=== PATIENT | female | born 1990 | race Caucasian/White ===

== ENCOUNTER 2019-06-12 12:09 | Emergency (ER) | payer MEDICARE, MEDICAID, SELFPAY ==
--- NOTE | ~2019-06-12 | CT_ITS ---
EXAMINATION: CT abdomen pelvis w con DATE: 06/12/2019 14:13 INDICATION: Suprapubic abdominal pain with nausea and vomiting TECHNIQUE: Computed tomography (CT) of the abdomen and pelvis was performed with 100 cc intravenous c ontrast. Automated exposure control and iterative reconstruction technique were employed. Exam dose: 427.86 mGy-cm total exam DLP. COMPARISON: None. FINDINGS: The lung bases are clear. Normal heart size. No pericardial or pleural effusion. No hepatic space-occupying mass lesion or bile duct dilatation. The gallbladder is unremarkable. No p ancreatic mass lesion, calcification or ductal dilatation. Normal splenic size. Normal morphology of the adrenal glands. No renal mass lesion or urinary tract calculus or hydroureteronephrosis. Normal caliber of the abdominal aorta. No intraperitoneal or retroperitoneal or pelvic mass lesion or adenopathy. 2 cm right ovarian cystic lesion is noted there is a mild amount of low-attenuation free fluid in the cul-de-sac and left adnexal area. The uterus, adnexal areas and urinary bladder are otherwise unremarkable. No bowel obstruction or intraperitoneal free air. Included skeletal structures are unremarkable. IMPRESSION: 2 cm right ovarian cystic lesion Mild amount of free fluid in the pelvic cul-de-sac and left adnexal area Reviewed, dictated and finalized at [facility]. Reviewed, dictated and finalized at location [facility]. 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
[2019-06-12 12:15] VITALS: BP 148/84; PULSE 91; RESP 18; TEMP 36.5; O2SAT 96
--- NOTE | 2019-06-12 12:21 | ED.ABDPAIN ---
HPI - Abdominal Pain General Chief Complaint: Abdominal Pain Stated Complaint: severe abd pain Time Seen by Provider: 06/12/19 12:40 Source: patient Mode of arrival: ambulatory Limitations: clinical condition History of Present Illness HPI narrative: 28-year-old woman comes in today complaining of suprapubic abdominal pain that has become worse over the last 48 hours. Patient states that she had some period-like cramps intermittently since her period 2 weeks ago. Her pain seems to get worse with eating and walking. She had vomiting yesterday and today. She some mashed potatoes approximately 1-1/2 hours ago. She denies fever, vaginal discharge, dysuria, diarrhea, hematemesis, melena, hematochezia and lightheadedness. MD elicited complaint: abdominal pain Onset (ago): week(s) (2) Pain Consistency: constant Location: suprapubic Severity: severe Quality: cramping Radiation: none Migration to: no migration Exacerbating factors: eating and movement Relieving factors: rest Associated symptoms: nausea and vomiting Related Data Home Medications Medication Instructions Recorded Confirmed multivitamin,[id number] 1 tablet PO DAILY 06/12/19 06/12/19 [Complete Multivitamin] Allergies Allergy/AdvReac Type Severity Reaction Status Date / Time No Known Allergies Allergy Verified 06/12/19 12:35 Review of Systems Constitutional: Constitutional: Denies chills, Denies fatigue, Denies fever(s) and Denies weakness Eyes: Eyes: Denies change in vision and Denies photophobia ENT: Denies dysphagia, Denies nasal congestion and Denies sore throat Cardiovascular: Cardiovascular: Denies chest pain and Denies radiating jaw, neck or arm pain Respiratory: Respiratory: Denies cough and Denies dyspnea Gastrointestinal: Gastrointestinal: Reports as per HPI Genitourinary: Genitourinary: Denies hematuria, Denies nocturia and Denies dysuria Musculoskeletal: Musculoskeletal: Denies back pain, Denies joint swelling and Denies muscle cramps Integumentary/Breasts: Skin/Breast: Denies pruritus, Denies erythema and Denies rash Neurologic: Denies vertigo, Denies syncope and Denies focal weakness Psychiatric: Psychiatric: Denies anxiety and Denies depression Endocrine: Endocrine: Denies polydipsia and Denies polyuria Hematologic/Lymphatic: Hematologic/Lymphatic: Denies easy bleeding and Denies easy bruising Allergic/Immunologic: Allergic/Immunologic: Denies lip swelling and Denies wheezing [facility] Past Medical History Medical History Kunkle's disease Surgical History Surgical History History of History of tonsillectomy History of tubal ligation Social History Social History Smoking status: Current some day smoker Alcohol intake: never Substance use: never Living arrangements: with family Exam Const: General: healthy appearing and alert Orientation/consciousness: patient oriented x3 Other: Moderate acute distress HENMT: Ears: external ears normal and EAC's normal Mouth: Yes Normal oral and palatal mucosa present and Yes moist mucous membranes Throat: posterior oropharynx normal Eyes: Conjunctivae: conjunctivae normal Pupils: Equal, round and reactive pupils present EOM: EOMs intact bilaterally Resp: Effort & Inspection: normal respiratory effort and not labored Auscultation: clear to auscultation bilaterally, no rales, no rhonchi and no wheezes Cardio: Rate: regular rate Rhythm: regular rhythm Heart sounds: no murmurs GI: GI Palp: Yes Soft to palpation, Yes Tenderness to palpation present (GI) (suprapubic), No Guarding due to palpation present (GI), No Rigid due to palpation and Yes Rebound tenderness present Auscultation: normal bowel sounds : General: Yes no CVA tenderness Skin: General skin exam: normal color, no
[2019-06-12] MEDS: ONDANSETRON INJ 4 MG/2 ML VIAL IV PUSH (12:39)
[2019-06-12] MEDS: SODIUM CHLORIDE 0.9% IV 1,000 ML 999 ML IV CONT (12:39)
--- NOTE | 2019-06-12 12:41 | PC.NURSE ---
Pt states she does not have a ride home if she would be discharged from er so pt declined pain medications at this time. edp aware.
[2019-06-12 12:51] LABS: Hematocrit 36.8 % (35.0-49.0); Hemoglobin 12.9 g/dL (12.0-15.0); Mean Corpuscular HGB Conc 35.1 g/dL (32.0-36.0); Mean Corpuscular Hemoglobin 31.2 pg (27.0-31.0); Mean Corpuscular Volume 88.9 fL (78.0-102.0); Mean Platelet Volume 10.5 fl (9.2-11.8); Platelet Count Result 143 K/mm3 (150-420); Red Blood Count 4.14 M/mm3 (4.20-5.40); Red Cell Distribution Width 12.2 % (11.6-14.4); White Blood Count 3.1 K/mm3 (4.8-10.8)
[2019-06-12 12:53] LABS: Add Urine Microscopic? NO; Appearance Urine Clear (Clear); Bilirubin Urine Negative (Negative); Blood Urine Negative (Negative); Color Urine Yellow (Yellow); Glucose Urine UA Negative (Negative); Ketones Urine Negative (Negative); Leukocyte Esterase Ur Negative LEU/UL (Negative); Nitrate Urine Negative (Negative); Protein Urine Negative (Negative); Specific Grav Ur 1.015 (1.010-1.020)
[2019-06-12 13:08] LABS: Partial Thromboplastin Time 28.5 SEC (22.3-31.6); Prothrombin Time 10.5 Seconds (9.64-11.0)
[2019-06-12 13:10] LABS: Band Neutrophils Percent 0 % (0-6); Basophils Percent Manual 0 % (0-1); Eosinophils Percent Manual 0 % (1-6); Lymphocytes Absolute Manual 0.77 K/mm3 (1.1-4.5); Lymphocytes Percent Manual 25 % (18-44); Monocytes Absolute Manual 0.34 K/mm3 (0.1-0.90); Monocytes Percent Manual 11 % (3-9); Neutrophils Absolute Manual 1.98 K/mm3 (1.7-7.2); Neutrophils Percent Manual 64 % (46-73); Platelet Estimate Adequate (Adequate); Total Cells Counted 100
[2019-06-12 13:16] LABS: Alanine Aminotransferase 22 U/L (14-59); Anion Gap 14.5 mmol/L (7-16); Aspartate Amino Transferase 18 U/L (15-37); Bilirubin,Total 0.3 mg/dL (0.00-1.00); Blood Urea Nitrogen 12 mg/dL (7-18); Calcium 8.5 mg/dL (8.5-10.1); Carbon Dioxide 27 mmol/L (21-32); Chloride 103 mmol/L (98-108); Estimated CRCL calculation 97 ml/min; Estimated Glomerular Filt Rate > 60; Glucose 82 mg/dL (70-99); Osmolality Calculated 290 mOsm/kg (285-295); Potassium 3.5 mmol/L (3.5-5.1); Sodium 141 mmol/L (136-145)
[2019-06-12 13:17] LABS: Albumin Level 4.3 g/dL (3.4-5.0); Alkaline Phosphatase 42 U/L (46-116); Beta HCG Quantitative < 1.00 mIU/mL (0-6); Lipase 83 U/L (73-393); Total Protein 7.6 g/dL (6.4-8.2)
[2019-06-12 13:24] LABS: Lactic Acid Reflex 0.8 mmol/L (0.4-2.0)
[2019-06-12] MEDS: KETOROLAC 30 MG/ML VIAL (*BKC) IV PUSH (14:56)
[2019-06-12 15:00] VITALS: BP 119/63; PULSE 66; RESP 16; O2SAT 100
== END 2019-06-12 15:09 | disposition home or self-care (01) ==
PROVIDERS: Emergency Provider Emergency Medicine
DX: N83.201 Unspecified ovarian cyst, right side (principal); G10 Huntington's disease; F17.200 Nicotine dependence, unspecified, uncomplicated
CPT/HCPCS: 36415; 74177; 80053; 81003; 83605; 83690; 84702; 85025; 85610; 85730; 86850; 86900; 86901; 86923; 87040; 87210; 87491; 87591; 96361; 96374; 96375; 99283; 99284; J1885; J2405; J7030; Q9965

== ENCOUNTER 2019-07-26 10:51 | Emergency (ER) | payer MEDICARE, MEDICAID, SELFPAY ==
[2019-07-26 10:53] VITALS: BP 129/87; PULSE 122; RESP 19; TEMP 37.2; O2SAT 100
--- NOTE | 2019-07-26 11:20 | ED.PSYCH ---
HPI - Psych General Chief Complaint: Psychiatric Symptoms Stated Complaint: SI Time Seen by Provider: 07/26/19 11:20 Source: patient Mode of arrival: ambulatory Limitations: no limitations History of Present Illness HPI Narrative: A 28 y/o female presents to the ED with c/o SI. Pt has a history of psychiatric symptoms and states that she has been experiencing increased depression for 1 week. Pt was planning to OD on Naproxen this morning. Pt has seen a counselor in the past but does not currently have one. Pt is here requesting psychiatric facility placement. She denies any current pain in the ED bed. Onset (ago): week(s) (1) History of same: Yes Associated psychiatric symptoms: depression and suicidal ideation Related Data Home Medications Medication Instructions Recorded Confirmed multivitamin,[id number] 1 tablet PO DAILY 06/12/19 06/12/19 [Complete Multivitamin] Allergies Allergy/AdvReac Type Severity Reaction Status Date / Time No Known Allergies Allergy Verified 07/26/19 10:59 Review of Systems Review of Systems: All systems reviewed & are unremarkable except as noted in HPI and below Constitutional: Comments: Denies: any current pain in the ED bed Psychiatric: Psychiatric: Reports depression Comments: Reports: SI [facility] Past Medical History Medical History Yi's disease Surgical History Surgical History History of History of tonsillectomy History of tubal ligation Social History Social History Smoking status: Current some day smoker Alcohol intake: never Substance use: never Gender identity (if verbalized by the patient): Female Comments No PCP on file. Exam Const: General: no acute distress and alert Orientation/consciousness: patient oriented x3 HENMT: Head: normal to inspection Resp: Effort & Inspection: normal respiratory effort Auscultation: clear to auscultation bilaterally Cardio: Rate: regular rate Rhythm: regular rhythm Skin: General skin exam: normal color Neuro: General: patient oriented x3 and moves all extremities Speech: normal speech Other: coreoathetosis Extrem: General: normal to inspection Psych: Affect: Sad affect present Thought content: Yes Suicidality present and Yes Depressive thoughts present Course Vital Signs Vital signs: Vital Signs Temperature 37.2 C 07/26/19 10:53 Pulse Rate 122 H 07/26/19 10:53 Respiratory Rate 07/26/19 10:53 Blood Pressure 129/87 07/26/19 10:53 Pulse Oximetry 100 07/26/19 10:53 Temperature 37.2 C 07/26/19 10:53 Pulse Rate 122 H 07/26/19 10:53 Respiratory Rate 07/26/19 10:53 Blood Pressure 129/87 07/26/19 10:53 Pulse Oximetry 100 07/26/19 10:53 MDM - Psych MDM Narrative Medical decision making narrative: She has no active medical illness requiring treatment. She is clear for admission to a psychiatric facility Differential Diagnosis Differential diagnosis: Likely suicidal ideation, depression and other (yi's) Medical Records Attestation: I reviewed the patient's medical records. Lab Data Attestation: I reviewed the patient's lab results. Result diagrams: 07/26/19 11:13 07/26/19 11:13 Labs: Lab Results 07/26/19 07/26/19 07/26/19 Range/Units 11:13 11:13 11:13 WBC 4.1 L (4.5-10.0) K/mm3 RBC 4.22 (4.2-5.4) M/mm3 Hgb 13.1 (12.0-15.0) g/dL Hct 38.7 (37.0-47.0) % MCV 91.7 (80-100) fl MCH 31.0 (26-34) pg MCHC 33.9 (32-36) g/dl RDW 13.0 (11.5-14.5) % Plt Count 204 (150-375) k/mm3 MPV 11.6 H (7.4-10.4) fl Immature Gran % (Auto) 0.2 (0-0.5) % Neut % (Auto) 66.5 (45.5-73.1) % Lymph % (Auto) 25.4 (18.3-44.2) % [place] % (Auto) 6.2 (2.6-8.5) % Eos % (Auto) 0.7 (0-4.4) % Baso % (Auto) 1.0
[2019-07-26 11:24] LABS: Eosinophils Percent Auto 0.7 % (0-4.4); Hematocrit 38.7 % (37.0-47.0); Hemoglobin 13.1 g/dL (12.0-15.0); Immature Granulocyte Absolute 0.01 K/mm3 (0.00-0.031); Immature Granulocyte Percent A 0.2 % (0-0.5); Lymphocytes Absolute Auto 1.03 K/mm3 (0.9-3.2); Lymphocytes Percent Auto 25.4 % (18.3-44.2); Mean Corpuscular HGB Conc 33.9 g/dl (32-36); Mean Corpuscular Volume 91.7 fl (80-100); Mean Platelet Volume 11.6 fl (7.4-10.4); Monocytes Absolute Auto 0.3 K/mm3 (0.1-0.6); Monocytes Percent Auto 6.2 % (2.6-8.5); Neutrophils Absolute Auto 2.7 K/mm3 (1.3-6.7); Neutrophils Percent Auto 66.5 % (45.5-73.1); Platelet Count Result 204 k/mm3 (150-375); Red Blood Count 4.22 M/mm3 (4.2-5.4); White Blood Count 4.1 K/mm3 (4.5-10.0)
[2019-07-26 11:35] LABS: Alanine Aminotransferase 15 U/L (4-35); Albumin Level 4.6 g/dL (3.5-5.1); Alkaline Phosphatase 45 U/L (38-126); Aspartate Amino Transferase 25 U/L (14-36); Bilirubin,Total 0.5 mg/dL (0.2-1.3); Blood Urea Nitrogen 14 mg/dL (7-17); Calcium 9.3 mg/dL (8.4-10.2); Carbon Dioxide 27 mmol/L (22-30); Chloride 105 mmol/L (98-107); Estimated CRCL calculation 121 ml/min; Estimated Glomerular Filt Rate > 60; Glucose 109 mg/dL (65-105); Potassium 3.6 mmol/L (3.4-5.0); Sodium 138 mmol/L (137-145)
[2019-07-26 11:38] LABS: Ethanol < 10 mg/dL (<10)
[2019-07-26 11:43] LABS: Add Urine Microscopic? YES; Appearance Urine Clear (Clear); Bilirubin Urine Negative (Negative); Blood Urine Negative (Negative); Color Urine Yellow (Yellow); Glucose Urine UA Negative (Negative); Ketones Urine Negative (Negative); Leukocyte Esterase Ur Negative LEU/UL (Negative); Mucus Urine Moderate /lpf; Nitrate Urine Negative (Negative); Protein Urine 2+ mg/dL (Negative); RBC Urine 0-2 /hpf (0-2); Specific Grav Ur 1.025 (1.001-1.035); Squamous Epithelial Cell Urine Few /hpf (Few); Urobilinogen Urine Negative mg/dL (<2.0); WBC Urine 0-3 /hpf
[2019-07-26 11:48] LABS: Amphetamine Screen Urine Negative (Negative); Barbiturate Screen Urine Negative (Negative); Benzodiazepines Screen Urine Negative (Negative); Cannabinoid Screen Urine Negative (Negative); Cocaine Screen Urine Negative (Negative); Methadone Screen Urine Negative (Negative); Opiate Screen Urine Negative (Negative); Phencyclidine Screen Urine Negative (Negative)
--- NOTE | 2019-07-26 14:09 | PC.NURSE ---
CRISIS HERE TO SPEAK WITH PT
[2019-07-26 15:30] VITALS: BP 121/97; PULSE 114; RESP 20; TEMP 36.7; O2SAT 95
--- NOTE | 2019-07-26 18:01 | PC.NURSE ---
FOOD TRAY ORDERED FOR PT
--- NOTE | 2019-07-26 19:20 | PC.NURSE ---
ATTEMPTED TO CALL REP0RT TO [facility]. RN TO CALL BACK AFTER SHIFT CHANGE REPORT IS COMPLETED
--- NOTE | 2019-07-26 19:42 | PC.NURSE ---
ATTEMPTED TO GIVE REPORT TO [facility] AND WAS TOLD THAT THEY WILL CALL US BACK
[2019-07-26 19:53] VITALS: BP 124/78; PULSE 100; RESP 18; TEMP 36.8; O2SAT 100
--- NOTE | 2019-07-26 19:55 | PC.NURSE ---
[facility] ETA 45 minutes.
--- NOTE | 2019-07-26 20:35 | PC.NURSE ---
bedside report given to ems. transport packet given to ems. pt resting calmly in bed. pt belongings given to ems
== END 2019-07-26 20:36 ==
PROVIDERS: Emergency Provider Emergency Medicine
DX: R45.851 Suicidal ideations (principal); F17.200 Nicotine dependence, unspecified, uncomplicated; G10 Huntington's disease; F02.80 Dementia in other diseases classified elsewhere, unspecified severity, without behavioral disturbance, psychotic disturbance, mood disturbance, and anxiety
CPT/HCPCS: 36415; 80053; 80307; 81001; 81025; 84443; 85025; 99285

== ENCOUNTER 2020-06-24 17:00 | Emergency (ER) | payer MEDICARE, MEDICAID, SELFPAY ==
--- NOTE | ~2020-06-24 | US_ITS ---
EXAMINATION: US pelvic complete w TV DATE: 06/24/2020 17:58 INDICATION: Pelvic pain TECHNIQUE: Multiple transabdominal and endovaginal sonographic images of the pelvis were obtained. COMPARISON: CT, 06/12/2019 FINDINGS: The uterus measures 8.6 x 4.0 x 5.1 cm. The endometrial complex measures 13 mm. The right o vary measures 2.4 x 3.2 x 2.5 cm. A 1.4 cm mildly hyperechoic area seen in the right ovary which is d ecreased in size since the comparison CT, likely resolving hemorrhagic cyst. The left ovary measures 2.5 x 1.8 x 1.9 cm. There is normal vascular flow in the ovaries. There is no free fluid in the pelvi s. IMPRESSION: 1. No sonographic correlate for the patient's symptoms. Reviewed, dictated and finalized at location [facility]. 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
[2020-06-24 17:04] VITALS: BP 124/72; PULSE 70; RESP 20; TEMP 36.2; O2SAT 100
[2020-06-24 17:16] LABS: Basophils Percent Auto 0.4 % (0.2-1.2); Eosinophils Absolute Auto 0.2 K/mm3 (0-0.3); Eosinophils Percent Auto 4.6 % (0-4.4); Hematocrit 38.5 % (37.0-47.0); Lymphocytes Absolute Auto 1.28 K/mm3 (0.9-3.2); Lymphocytes Percent Auto 28.2 % (18.3-44.2); Mean Corpuscular HGB Conc 33.8 g/dl (32-36); Mean Corpuscular Hemoglobin 30.7 pg (26-34); Mean Corpuscular Volume 90.8 fl (80-100); Mean Platelet Volume 10.5 fl (7.4-10.4); Monocytes Absolute Auto 0.4 K/mm3 (0.1-0.6); Monocytes Percent Auto 8.4 % (2.6-8.5); Neutrophils Absolute Auto 2.7 K/mm3 (1.3-6.7); Neutrophils Percent Auto 58.4 % (45.5-73.1); Platelet Count Result 181 k/mm3 (150-375); Red Blood Count 4.24 M/mm3 (4.2-5.4); Red Cell Distribution Width 13.1 % (11.5-14.5); White Blood Count 4.5 K/mm3 (4.5-10.0)
--- NOTE | 2020-06-24 17:19 | ED.ABDPAIN ---
HPI - Abdominal Pain General Chief Complaint: Abdominal Pain Stated Complaint: abd pain Time Seen by Provider: 06/24/20 17:06 Source: patient Mode of arrival: ambulatory Limitations: no limitations History of Present Illness HPI narrative: This is a 29 year old female that presents to the ER for pelvic pain since yesterday. Reports it is intermittent and sharp in nature. Reports history of ovarian cysts and that this feels similar. LMP was in the end of May. Denies fever, nausea, vomiting, dysuria, or hematuria. Related Data Home Medications Medication Instructions Recorded Confirmed albuterol sulfate INHALATION 06/24/20 aripiprazole mg 06/24/20 bupropion HCl mg PO 06/24/20 buspirone mg 06/24/20 buspirone mg 06/24/20 clonidine HCl 06/24/20 famotidine 06/24/20 lorazepam 06/24/20 prazosin 06/24/20 sertraline mg 06/24/20 trazodone 06/24/20 valacyclovir 06/24/20 Allergies Allergy/AdvReac Type Severity Reaction Status Date / Time No Known Allergies Allergy Verified 06/24/20 17:06 Review of Systems Review of Systems: Narrative: CONSTITUTIONAL: Denies fever GASTROINTESTINAL: Reports abdominal/pelvic pain. Denies nausea, vomiting, or diarrhea. GENITOURINARY: Denies dysuria or hematuria. All systems reviewed & are unremarkable except as noted in HPI and below PMFSH Past Medical History Medical History (Updated 06/24/20 @ 19:41 by Barbra Guerrier PA-C) [place]'s disease Surgical History Surgical History History of History of tonsillectomy History of tubal ligation Social History Social History Smoking status: Current some day smoker Alcohol intake: never Substance use: never Gender identity (if verbalized by the patient): Female Exam Narrative: Exam Narrative: GENERAL: Well-appearing, well-nourished, and in no acute distress. HEAD: Normocephalic, atraumatic. EYES: EOMI. CHEST: Clear to auscultation. No respiratory distress. No wheezes rales or rhonchi HEART: Regular rate and rhythm. No murmur heard. Normal peripheral pulses. ABDOMEN: Soft, nondistended, normal active bowel sounds. Tender to palpation in the left lower quadrant, without guarding EXTREMITIES: Normal range of motion. No edema. SKIN: Warm, dry, no rash. NEURO: No focal deficits. Alert and oriented x3. PSYCH: Normal mood and affect PELVIC: Normal external genitalia. Normal appearing cervix. No CMT Course Vital Signs Vital signs: Vital Signs Temperature 97.1 F L 06/24/20 17:04 Pulse Rate 70 06/24/20 17:04 Respiratory Rate 20 06/24/20 17:04 Blood Pressure 124/72 06/24/20 17:04 Pulse Oximetry 100 06/24/20 17:04 Temperature 97.1 F L 06/24/20 17:04 Pulse Rate 69 06/24/20 19:09 Respiratory Rate 20 06/24/20 19:09 Blood Pressure 119/69 06/24/20 19:09 Pulse Oximetry 100 06/24/20 19:09 MDM - Abdominal Pain MDM Narrative Medical decision making narrative: Patient presents to the ER for abdominal/pelvic pain. History of ovarian cyst, reports pain feels similar. She is afebrile and nontoxic-appearing. Her vitals are stable. CBC and metabolic panel without concerning findings. Lipase is normal. UA without evidence of infection. Bedside test is negative. Trichomonas was negative; genital culture, chlamydia and gonorrhea were sent. Pelvic ultrasound is without acute abnormalities. Does show a small ovarian cyst. Normal vascular flow to the ovaries, and no free fluid in the pelvis. Patient updated on case findings. 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 She was given warnings to return to the ER Lab Data Attestation: I reviewed the patient's lab results. Result diagrams: 06/24/20 17:10 06/24/20 17:10 Labs: Lab Results 06/24/20 06/24/20 06/24/20 Range/Units 17:10 17:10 18:53 WBC 4.5 (4.5-10.0) K/
[2020-06-24 17:27] LABS: Alanine Aminotransferase 11 U/L (4-35); Albumin Level 4.2 g/dL (3.5-5.1); Alkaline Phosphatase 42 U/L (38-126); Anion Gap 5 mmol/L (8-16); Aspartate Amino Transferase 23 U/L (14-36); Bilirubin,Total 0.3 mg/dL (0.2-1.3); Blood Urea Nitrogen 14 mg/dL (7-17); Calcium 8.5 mg/dL (8.4-10.2); Carbon Dioxide 26 mmol/L (22-30); Chloride 108 mmol/L (98-107); Estimated CRCL calculation 104 ml/min; Estimated Glomerular Filt Rate > 60; Glucose 82 mg/dL (65-105); Lipase 75 U/L (23-300); Potassium 3.5 mmol/L (3.4-5.0); Sodium 139 mmol/L (137-145)
[2020-06-24 19:09] VITALS: BP 119/69; PULSE 69; RESP 20; O2SAT 100
[2020-06-24 19:16] LABS: Add Urine Microscopic? YES; Appearance Urine Clear (Clear); Bilirubin Urine Negative (Negative); Blood Urine Negative (Negative); Color Urine Yellow (Yellow); Glucose Urine UA Negative (Negative); Ketones Urine Negative (Negative); Leukocyte Esterase Ur Negative LEU/UL (Negative); Mucus Urine Rare /lpf; Nitrate Urine Negative (Negative); Protein Urine 1+ mg/dL (Negative); Squamous Epithelial Cell Urine Few /hpf (Few); Urobilinogen Urine Negative mg/dL (<2.0); WBC Urine 0-3 /hpf
[2020-06-24 19:17] LABS: Specific Grav Ur 1.031 (1.001-1.035)
[2020-06-24 20:00] VITALS: BP 118/75; PULSE 82; RESP 16; TEMP 36.4; O2SAT 98
== END 2020-06-24 20:01 | disposition home or self-care (01) ==
PROVIDERS: Physician Assistant; Emergency Provider Emergency Medicine; PCP Emergency Medicine
DX: R10.2 Pelvic and perineal pain (principal); G10 Huntington's disease; F17.200 Nicotine dependence, unspecified, uncomplicated
CPT/HCPCS: 36415; 76830; 76856; 80053; 81001; 81025; 83690; 85025; 87070; 87491; 87591; 87808; 96374; 99284; J0131

== ENCOUNTER 2020-08-03 14:30 | Emergency (ER) | payer MEDICARE, MEDICAID, SELFPAY ==
--- NOTE | ~2020-08-03 | XR_ITS ---
XR chest 2V DATE: 08/03/2020 16:00 INDICATION: Cough, shortness of breath TECHNIQUE: PA and lateral views COMPARISON: 10/26/2018 PA and lateral chest FINDINGS: Normal heart size. No hilar or mediastinal enlargement. No pulmonary infiltrate or consolid ation, pleural effusion or pulmonary vascular congestion or pneumothorax. IMPRESSION: No active cardiopulmonary disease Reviewed, dictated and finalized at location [facility].
[2020-08-03 14:57] VITALS: BP 91/68; PULSE 74; RESP 20; TEMP 37.2; O2SAT 100
--- NOTE | 2020-08-03 15:04 | ED.URI ---
HPI - URI/Sore Throat General Chief Complaint: Upper Respiratory Infection Stated Complaint: sob has cold symptoms Time Seen by Provider: 08/03/20 15:05 Source: patient Mode of arrival: ambulatory Limitations: other (Elk's Disease) History of Present Illness HPI Narrative: Patient with history of Hu's Disease comes in complaining of mild shortness of breath and cough. 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 She denies fever. Denies chills. When she states she she has been more tired lately. She also has complained of a headache. Under history of present illness is unremarkable. MD elicited complaint: cough Onset (ago): day(s) (2 days ago) Consistency: intermittent Severity: mild Related Data Home Medications Medication Instructions Recorded Confirmed albuterol sulfate 2 inh INHALATION Q4H PRN 06/24/20 08/03/20 aripiprazole [Abilify] 7.5 mg PO DAILY 06/24/20 08/03/20 bupropion HCl 150 mg PO DAILY 06/24/20 08/03/20 buspirone 60 mg PO DAILY 06/24/20 08/03/20 clonidine HCl 0.1 mg PO DAILY 06/24/20 08/03/20 famotidine 20 mg PO DAILY 06/24/20 08/03/20 lorazepam 0.5 mg PO TID 06/24/20 08/03/20 prazosin 1 mg PO DAILY 06/24/20 08/03/20 sertraline 100 mg PO BID 06/24/20 08/03/20 trazodone 100 mg PO HS 06/24/20 08/03/20 valacyclovir 500 mg PO DAILY 06/24/20 08/03/20 omeprazole 20 mg PO DAILY 08/03/20 08/03/20 risperidone 0.5 mg PO BID 08/03/20 08/03/20 Allergies Allergy/AdvReac Type Severity Reaction Status Date / Time No Known Allergies Allergy Verified 06/24/20 17:06 Review of Systems Constitutional: Constitutional: Reports no additional constitutional complaints Eyes: Eyes: Reports no additional eye complaints ENT: Reports system reviewed and no additional complaints, except as documented Cardiovascular: Cardiovascular: Reports no additional cardiovascular complaints Respiratory: Respiratory: Reports no additional respiratory complaints Gastrointestinal: Gastrointestinal: Reports no additional gastrointestinal complaints Genitourinary: Genitourinary: Reports no additional female genitourinary complaints Musculoskeletal: Musculoskeletal: Reports no additional musculoskeletal complaints Integumentary/Breasts: Skin/Breast: Reports system reviewed and no additional complaints, except as docu Neurologic: Reports system reviewed and no additional complaints, except as documented Psychiatric: Psychiatric: Reports no additional psychiatric complaints Endocrine: Endocrine: Reports no additional endocrine complaints Hematologic/Lymphatic: Hematologic/Lymphatic: Reports no additional hematologic/lymphatic complaints Allergic/Immunologic: Allergic/Immunologic: Reports no additional allergic/immunologic complaints [facility] Past Medical History Medical History Hu's disease Surgical History Surgical History History of History of tonsillectomy History of tubal ligation Family History Family History Mother Elk's disease Social History Social History Smoking status: Current some day smoker Alcohol intake: never Substance use: never Gender identity (if verbalized by the patient): Female Exam Const: General: healthy appearing and no acute distress Orientation/consciousness: patient oriented x3 Limitations: altered mental status HENMT: Head: normal to inspection Ears: external ears normal and TM's normal bilaterally General nose exam: Normal external nose present Face and sinus: normal facial exam Mouth: Yes Normal oral and palatal mucosa present Throat: posterior oropharynx normal Eyes: Conjunctivae: conjunctivae normal Neck: Neck: normal visual inspection Chest: Chest palpation & inspection: normal inspection of the ch
[2020-08-03 15:39] LABS: Influenza Control Valid (Valid); SARS-CoV-2 Ag Negative (Negative)
[2020-08-03 16:46] VITALS: BP 114/46; PULSE 54; RESP 20; TEMP 36.7; O2SAT 98
== END 2020-08-03 16:48 | disposition home or self-care (01) ==
PROVIDERS: Emergency Provider Emergency Medicine; PCP Emergency Medicine
DX: J40 Bronchitis, not specified as acute or chronic (principal); Z20.822 Contact with and (suspected) exposure to COVID-19; G10 Huntington's disease; F17.200 Nicotine dependence, unspecified, uncomplicated
CPT/HCPCS: 71046; 87426; 87804; 99283; C9803

== ENCOUNTER 2020-09-25 17:53 | Emergency (ER) | payer MEDICARE, MEDICAID, SELFPAY ==
[2020-09-25 19:15] VITALS: BP 123/69; PULSE 64; RESP 20; TEMP 36.6; O2SAT 100
--- NOTE | 2020-09-25 19:35 | ED.LOWEXIN ---
HPI - Extremity Injury (Lower) General Chief Complaint: Extremity Injury, Lower Stated Complaint: right knee injury Time Seen by Provider: 09/25/20 19:20 Source: patient and family Mode of arrival: ambulatory Limitations: no limitations History of Present Illness HPI Narrative: Patient comes in with pain in right knee after she says she had some mild twisting motion of here knee. She heard her knee pop and that has worried her. Because of the pop and some mild to moderate, ongoing dull pain afterward she comes in. She states she did not sleep well last pm secondary to pain. NSAID's at home have not helped her to feel better. Ice at home has not helped much. Onset (ago): day(s) Type of Injury: blunt and other (twisting) Place: home Severity: moderate Exacerbating factors: weight bearing and movement Context: other (twisting) Associated symptoms: snap/pop sensation and swelling (minimal swelling) Other symptoms: none Treatments prior to arrival: cold therapy, bandage, NSAIDS and other (knee brace) Related Data Home Medications Medication Instructions Recorded Confirmed albuterol sulfate 2 inh INHALATION Q4H PRN 06/24/20 08/03/20 aripiprazole [Abilify] 7.5 mg PO DAILY 06/24/20 08/03/20 bupropion HCl 150 mg PO DAILY 06/24/20 08/03/20 buspirone 60 mg PO DAILY 06/24/20 08/03/20 clonidine HCl 0.1 mg PO DAILY 06/24/20 08/03/20 famotidine 20 mg PO DAILY 06/24/20 08/03/20 lorazepam 0.5 mg PO TID 06/24/20 08/03/20 prazosin 1 mg PO DAILY 06/24/20 08/03/20 sertraline 100 mg PO BID 06/24/20 08/03/20 trazodone 100 mg PO HS 06/24/20 08/03/20 valacyclovir 500 mg PO DAILY 06/24/20 08/03/20 omeprazole 20 mg PO DAILY 08/03/20 08/03/20 risperidone 0.5 mg PO BID 08/03/20 08/03/20 Allergies Allergy/AdvReac Type Severity Reaction Status Date / Time No Known Allergies Allergy Verified 09/25/20 19:52 Review of Systems Constitutional: Constitutional: Reports no additional constitutional complaints Eyes: Eyes: Reports no additional eye complaints ENT: Reports system reviewed and no additional complaints, except as documented Cardiovascular: Cardiovascular: Reports no additional cardiovascular complaints Respiratory: Respiratory: Reports no additional respiratory complaints Gastrointestinal: Gastrointestinal: Reports no additional gastrointestinal complaints Genitourinary: Genitourinary: Reports no additional female genitourinary complaints Musculoskeletal: Musculoskeletal: Reports no additional musculoskeletal complaints Integumentary/Breasts: Skin/Breast: Reports system reviewed and no additional complaints, except as docu Neurologic: Reports system reviewed and no additional complaints, except as documented Psychiatric: Psychiatric: Reports no additional psychiatric complaints Endocrine: Endocrine: Reports no additional endocrine complaints Hematologic/Lymphatic: Hematologic/Lymphatic: Reports no additional hematologic/lymphatic complaints Allergic/Immunologic: Allergic/Immunologic: Reports no additional allergic/immunologic complaints [facility] Past Medical History Medical History [place]'s disease Surgical History Surgical History History of History of tonsillectomy History of tubal ligation Family History Family History Mother [place] disease Social History Social History Smoking status: Current some day smoker Alcohol intake: never Substance use: never Gender identity (if verbalized by the patient): Female Exam Const: General: no acute distress and alert Orientation/consciousness: patient oriented x3 HENMT: Head: normal to inspection Ears: external ears normal and TM's normal bilaterally General nose exam: Normal external nose present Mouth: Yes Normal oral and palatal mucosa pre
[2020-09-25] MEDS: DEXAMETHASONE 4 MG TABLET 8 MG PO (19:48)
[2020-09-25 19:53] VITALS: PULSE 63; RESP 20; O2SAT 100
== END 2020-09-25 19:54 | disposition home or self-care (01) ==
PROVIDERS: Emergency Provider Emergency Medicine
DX: M25.561 Pain in right knee (principal)
CPT/HCPCS: 99283; J8540

== ENCOUNTER 2020-09-27 10:38 | Emergency (ER) | payer MEDICARE, MEDICAID, SELFPAY ==
--- NOTE | ~2020-09-27 | XR_ITS ---
EXAMINATION: XR knee RT 3V DATE: 09/27/2020 11:14 INDICATION: Right knee injury and pain and swelling. TECHNIQUE: 3 views of right knee were obtained. COMPARISON: Right knee radiographs 03/03/2015 FINDINGS: Bone alignment is normal. No fracture. Joint spaces are well maintained. There is no knee j oint effusion. IMPRESSION: 1. Normal right knee. Reviewed, dictated and finalized at location A. IMPRESSION: 1. Normal right knee.
[2020-09-27 10:45] VITALS: BP 127/86; PULSE 93; RESP 20; TEMP 36.8; O2SAT 100
--- NOTE | 2020-09-27 10:51 | ED.LOWEXIN ---
HPI - Extremity Injury (Lower) General Chief Complaint: Extremity Injury, Lower Stated Complaint: hurt knee Time Seen by Provider: 09/27/20 10:42 Source: patient Mode of arrival: wheelchair Limitations: no limitations History of Present Illness HPI Narrative: 30-year-old woman with a history of prior right MCL tears x2 comes in today complaining of medial lower right knee pain that started 4 days ago when she twisted her knee. Patient states that the pain is much worse than her prior similar injuries. she has had no surgery on her knee. She has had no imaging since this latest injury. Denies any calf pain, calf swelling, numbness or tingling. She is currently taking anti-inflammatories for discomfort. They are not acting adequately. MD complaint: knee injury Onset (ago): day(s) (4) Type of Injury: other (twisted) Severity: severe Relieving factors: nothing Exacerbating factors: weight bearing, movement and palpation Context: other (twisted) Associated symptoms: snap/pop sensation, swelling and unable to bear weight Other symptoms: none Treatments prior to arrival: NSAIDS and splint Related Data Home Medications Medication Instructions Recorded Confirmed albuterol sulfate 2 inh INHALATION Q4H PRN 06/24/20 09/27/20 aripiprazole [Abilify] 7.5 mg PO DAILY 06/24/20 09/27/20 bupropion HCl 150 mg PO DAILY 06/24/20 09/27/20 buspirone 60 mg PO DAILY 06/24/20 09/27/20 clonidine HCl 0.1 mg PO DAILY 06/24/20 09/27/20 lorazepam 0.5 mg PO TID 06/24/20 09/27/20 prazosin 1 mg PO DAILY 06/24/20 09/27/20 sertraline 100 mg PO BID 06/24/20 09/27/20 trazodone 100 mg PO HS 06/24/20 09/27/20 valacyclovir 500 mg PO DAILY 06/24/20 09/27/20 risperidone 0.5 mg PO BID 08/03/20 09/27/20 Allergies Allergy/AdvReac Type Severity Reaction Status Date / Time No Known Allergies Allergy Verified 09/25/20 19:52 Review of Systems Review of Systems: All systems reviewed & are unremarkable except as noted in HPI and below Constitutional: Constitutional: Denies chills and Denies fever(s) Cardiovascular: Cardiovascular: Denies chest pain and Denies radiating jaw, neck or arm pain Respiratory: Respiratory: Denies cough and Denies dyspnea Gastrointestinal: Gastrointestinal: Denies abdominal pain, Denies nausea and Denies vomiting Musculoskeletal: Musculoskeletal: Reports as per HPI, Denies back pain, Reports arthralgias and Reports joint swelling Integumentary/Breasts: Skin/Breast: Denies pruritus, Denies rash and Denies skin ulcer Neurologic: Denies vertigo, Denies dizziness and Denies syncope Hematologic/Lymphatic: Hematologic/Lymphatic: Denies easy bleeding and Denies easy bruising Allergic/Immunologic: Allergic/Immunologic: Denies lip swelling and Denies throat swelling PMFSH Past Medical History 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 Surgical History Surgical History History of History of tonsillectomy History of tubal ligation Family History Family History Mother Florence's disease Social History Social History Smoking status: Current some day smoker Alcohol intake: never Substance use: never Gender identity (if verbalized by the patient): Female Exam Const: General: healthy appearing and alert Orientation/consciousness: patient oriented x3 Other: [id number] acute distress Resp: Effort & Inspection: normal respiratory effort and not labored Auscultation: clear to auscultation bilaterally, no rales, no rhonchi and no wheezes Cardio: Rate: regular rate Rhythm: regular rhythm Heart sounds: no murmurs Skin: General skin exam: normal color, no jaundice and no pallor Rashes: no rashes Neuro: General: patient oriented x3, moves all extremities, no focal motor deficits and CN's II
[2020-09-27 11:20] VITALS: RESP 17
== END 2020-09-27 11:20 | disposition home or self-care (01) ==
PROVIDERS: Emergency Provider Emergency Medicine; PCP Emergency Medicine
DX: M23.91 Unspecified internal derangement of right knee (principal)
CPT/HCPCS: 73562; 99283

== ENCOUNTER 2020-09-30 17:38 | Emergency (ER) | payer MEDICARE, MEDICAID, SELFPAY ==
--- NOTE | ~2020-09-30 | CT_ITS ---
EXAMINATION: CT abdomen pelvis wo con DATE: 09/30/2020 19:47 INDICATION: Right flank pain and hematuria TECHNIQUE: Computed tomography (CT) of the abdomen and pelvis was performed without intravenous contr ast. Automated exposure control and iterative reconstruction technique were employed. The dose-length product was 195.91 mGy-cm. COMPARISON: None FINDINGS: Minimal dependent atelectasis in the right lower lobe. Heart size is normal. No pericardial or pleura l effusion. Liver, gallbladder, spleen, pancreas and bilateral adrenal glands are normal. Kidneys and ureters are normal with no urolithiasis, hydroureteronephrosis or perinephric/ureteral stranding. No interval change in a couple small phleboliths in the right hemipelvis. No abnormal bowel wall thicke yana or obstruction. Suture line at the tip of the cecum and a couple nearby surgical clips likely re lated to prior appendectomy. Small amount of likely physiologic free fluid in the cul-de-sac. Antever beatris uterus, decompressed bladder and bilateral adnexa are unremarkable on noncontrast imaging. No pat hologically enlarged abdominal or pelvic lymphadenopathy. Mild disc height loss and prominent disc e xtrusion at L5-S1. IMPRESSION: 1. Small amount of likely physiologic free fluid in the cul-de-sac. No urolithiasis or other acute in tra-abdominal/pelvic process. Reviewed, dictated and finalized at location A. IMPRESSION: 1. Small amount of likely physiologic free fluid in the cul-de-sac. No urolithi asis or other acute intra-abdominal/pelvic process.
[2020-09-30 17:51] VITALS: BP 128/85; PULSE 103; RESP 14; TEMP 36.4; O2SAT 100
--- NOTE | 2020-09-30 18:14 | ED.ABDPAIN ---
HPI - Abdominal Pain General Chief Complaint: Abdominal Pain Stated Complaint: sharp pain in R side Time Seen by Provider: 09/30/20 17:55 Source: patient Mode of arrival: ambulatory Limitations: no limitations History of Present Illness HPI narrative: patient comes in with pain, which she points to right flank, near right sacroiliac joint. Pain has been moderately severe, sharp, and ongoing for the past two hours prior to arrival. This was not made better or worse at home. She comes in because pain has been ongoing not relieved at home. MD elicited complaint: abdominal pain Pertinent past history: constipation Onset (ago): hour(s) Pain Consistency: constant Location: R flank Severity: moderate Quality: stabbing and sharp Radiation: none Migration to: epigastric Exacerbating factors: nothing Relieving factors: nothing Associated symptoms: denies other symptoms Related Data Home Medications Medication Instructions Recorded Confirmed albuterol sulfate 2 inh INHALATION Q4H PRN 06/24/20 09/30/20 aripiprazole [Abilify] 7.5 mg PO DAILY 06/24/20 09/30/20 bupropion HCl 150 mg PO DAILY 06/24/20 09/30/20 buspirone 60 mg PO DAILY 06/24/20 09/30/20 clonidine HCl 0.1 mg PO DAILY 06/24/20 09/30/20 lorazepam 0.5 mg PO TID 06/24/20 09/30/20 prazosin 1 mg PO DAILY 06/24/20 09/30/20 sertraline 100 mg PO BID 06/24/20 09/30/20 trazodone 100 mg PO HS 06/24/20 09/30/20 valacyclovir 500 mg PO DAILY 06/24/20 09/30/20 risperidone 0.5 mg PO BID 08/03/20 09/30/20 Allergies Allergy/AdvReac Type Severity Reaction Status Date / Time No Known Allergies Allergy Verified 09/25/20 19:52 Review of Systems Constitutional: Constitutional: Reports no additional constitutional complaints Eyes: Eyes: Reports no additional eye complaints ENT: Reports system reviewed and no additional complaints, except as documented Cardiovascular: Cardiovascular: Reports no additional cardiovascular complaints Respiratory: Respiratory: Reports no additional respiratory complaints Gastrointestinal: Gastrointestinal: Reports no additional gastrointestinal complaints Genitourinary: Genitourinary: Reports no additional female genitourinary complaints Musculoskeletal: Musculoskeletal: Reports no additional musculoskeletal complaints Integumentary/Breasts: Skin/Breast: Reports system reviewed and no additional complaints, except as docu Neurologic: Reports system reviewed and no additional complaints, except as documented Psychiatric: Psychiatric: Reports no additional psychiatric complaints Endocrine: Endocrine: Reports no additional endocrine complaints Hematologic/Lymphatic: Hematologic/Lymphatic: Reports no additional hematologic/lymphatic complaints Allergic/Immunologic: Allergic/Immunologic: Reports no additional allergic/immunologic complaints PMFSH Past Medical History Medical History Hu's disease Surgical History Surgical History History of History of tonsillectomy History of tubal ligation Family History Family History Mother Hu's disease Social History Social History Smoking status: Current some day smoker Alcohol intake: never Substance use: never Gender identity (if verbalized by the patient): Female Exam Const: General: no acute distress and alert Orientation/consciousness: patient oriented x3 HENMT: Head: normal to inspection Ears: external ears normal General nose exam: Normal external nose present Mouth: Yes Normal oral and palatal mucosa present Throat: posterior oropharynx normal Eyes: Conjunctivae: conjunctivae normal Neck: Neck: normal visual inspection Chest: Chest palpation & inspection: normal inspection of the chest Resp: Effort & Inspection: normal respiratory effort Aus
[2020-09-30 18:21] LABS: Basophils Absolute Auto 0.03 K/mm3 (0.00-0.10); Basophils Percent Auto 0.7 % (0.0-1.0); Eosinophils Absolute Auto 0.11 K/mm3 (0.02-0.50); Eosinophils Percent Auto 2.6 % (1.0-6.0); Hematocrit 35.9 % (35.0-49.0); Hemoglobin 12.1 g/dL (12.0-15.0); Immature Granulocyte Absolute 0.01 K/mm3 (0.00-0.00); Immature Granulocyte Percent A 0.2 % (0.0-0.0); Lymphocytes Absolute Auto 1.55 K/mm3 (1.10-4.50); Lymphocytes Percent Auto 36.7 % (18.0-42.0); Mean Corpuscular HGB Conc 33.7 g/dL (32.0-36.0); Mean Corpuscular Hemoglobin 30.5 pg (27.0-31.0); Mean Corpuscular Volume 90.4 fL (78.0-102.0); Mean Platelet Volume 10.4 fl (9.2-11.8); Monocytes Absolute Auto 0.31 K/mm3 (0.10-0.90); Monocytes Percent Auto 7.3 % (2.0-11.0); Neutrophils Absolute Auto 2.2 K/mm3 (1.7-7.2); Neutrophils Percent Auto 52.5 % (50.0-70.0); Platelet Count Result 196 K/mm3 (150-420); Red Blood Count 3.97 M/mm3 (4.20-5.40); Red Cell Distribution Width 12.9 % (11.6-14.4); White Blood Count 4.2 K/mm3 (4.8-10.8)
[2020-09-30] MEDS: KETOROLAC (*BKC) 60 MG/2 ML VIAL IM (18:30)
[2020-09-30 18:34] LABS: Alanine Aminotransferase 22 U/L (14-59); Albumin Level 3.7 g/dL (3.4-5.0); Alkaline Phosphatase 46 U/L (46-116); Anion Gap 8 mmol/L (8-16); Aspartate Amino Transferase 14 U/L (15-37); Bilirubin,Total 0.2 mg/dL (0.00-1.00); Blood Urea Nitrogen 13 mg/dL (7-18); Calcium 8.7 mg/dL (8.5-10.1); Carbon Dioxide 28 mmol/L (21-32); Chloride 104 mmol/L (98-108); Estimated CRCL calculation 93 ml/min; Estimated Glomerular Filt Rate > 60; Glucose 91 mg/dL (70-99); Osmolality Calculated 290 mOsm/kg (285-295); Potassium 3.4 mmol/L (3.5-5.1); Sodium 140 mmol/L (136-145); Total Protein 6.4 g/dL (6.4-8.2)
[2020-09-30 18:52] LABS: Appearance Urine Sl Cloudy (Clear); Bilirubin Urine Negative (Negative); Blood Urine 3+ (Negative); Glucose Urine UA Negative (Negative); Ketones Urine Negative (Negative); Leukocyte Esterase Ur Negative LEU/UL (Negative); Nitrate Urine Negative (Negative); Protein Urine Negative (Negative); Specific Grav Ur 1.025 (1.010-1.020); pH Urine 6.5 (5.0-8.0)
[2020-09-30 19:00] LABS: Add Urine Microscopic? YES; Color Urine Light Yellow (Yellow); Squamous Epithelial Cell Urine Few /hpf (Few); WBC Urine None seen /hpf (0-3)
[2020-09-30 19:01] LABS: Amorphous Sediment Urine Moderate; Bacteria Urine Trace /hpf
[2020-09-30 20:30] VITALS: BP 101/83; PULSE 88; RESP 14; O2SAT 100
== END 2020-09-30 20:31 | disposition home or self-care (01) ==
PROVIDERS: Emergency Provider Emergency Medicine; PCP Emergency Medicine
DX: M53.3 Sacrococcygeal disorders, not elsewhere classified (principal)
CPT/HCPCS: 36415; 74176; 80053; 81001; 85025; 96372; 99283; 99284; J1885

== ENCOUNTER 2020-10-08 20:50 | Emergency (ER) | payer MEDICARE, MEDICAID, SELFPAY ==
--- NOTE | 2020-10-08 20:59 | ED.NAVMDI ---
HPI - Nausea/Vomiting/Diarrhea General Chief complaint: Nausea/Vomiting/Diarrhea Stated complaint: tired/vomitting Source: patient and RN notes reviewed Mode of arrival: ambulatory Limitations: no limitations History of Present Illness MD elicited complaint: vomiting Onset (ago): week(s) (1) Description of vomiting: food contents Associated abdominal pain: No Location of pain: none Severity: moderate Exacerbating factors: eating Relieving factors: none Associated symptoms: denies other symptoms Treatment prior to arrival: none Related Data Home Medications Medication Instructions Recorded Confirmed albuterol sulfate 2 inh INHALATION Q4H PRN 06/24/20 10/08/20 aripiprazole [Abilify] 7.5 mg PO DAILY 06/24/20 10/08/20 bupropion HCl 150 mg PO DAILY 06/24/20 10/08/20 buspirone 60 mg PO DAILY 06/24/20 10/08/20 clonidine HCl 0.1 mg PO DAILY 06/24/20 10/08/20 lorazepam 0.5 mg PO TID 06/24/20 10/08/20 prazosin 1 mg PO DAILY 06/24/20 10/08/20 sertraline 100 mg PO BID 06/24/20 10/08/20 trazodone 100 mg PO HS 06/24/20 10/08/20 valacyclovir 500 mg PO DAILY 06/24/20 10/08/20 risperidone 0.5 mg PO BID 08/03/20 10/08/20 Allergies Allergy/AdvReac Type Severity Reaction Status Date / Time No Known Allergies Allergy Verified 09/25/20 19:52 Review of Systems Review of Systems: All systems reviewed & are unremarkable except as noted in HPI and below Constitutional: Constitutional: Denies chills, Denies fever(s) and Reports weakness Gastrointestinal: Gastrointestinal: Denies constipation and Denies diarrhea Comments: Thought she saw blood in her stool Genitourinary: Genitourinary: Reports no additional female genitourinary complaints and Denies dysuria PMF Past Medical History Medical History (Updated 10/08/20 @ 21:43 by Tian Guerra MD) Arlington's disease Surgical History Surgical History History of History of tonsillectomy History of tubal ligation Family History Family History Mother Arlington's disease Social History Social History Smoking status: Current some day smoker Alcohol intake: never Substance use: never Gender identity (if verbalized by the patient): Female Exam Const: General: healthy appearing, no acute distress and alert Nutritional Appearance: well nourished Orientation/consciousness: patient oriented x3 Other: Female nurse in room during examination. HENMT: Head: normal to inspection Ears: external ears normal Eyes: Pupils: Equal, round and reactive pupils present EOM: EOMs intact bilaterally Neck: Neck: normal visual inspection Resp: Effort & Inspection: normal respiratory effort Auscultation: clear to auscultation bilaterally Cardio: Rate: regular rate Rhythm: regular rhythm GI: GI Palp: Yes Soft to palpation and No Tenderness to palpation present (GI) Auscultation: normal bowel sounds Back/Spine/Pelvis: Cervical Spine: cervical ROM normal Thoracic/Lumbar Spine: thoraco-lumbar ROM normal Skin: General skin exam: normal color Rashes: no rashes Neuro: General: patient oriented x3, moves all extremities, no meningeal signs and no focal motor deficits Speech: normal speech Gait exam (Neuro): Normal gait present Motor exam (neuro): Motor abnormalites present akathisia Extrem: General: normal to inspection and no clubbing, cyanosis or edema Psych: Appearance: grossly normal and well kempt Mental Status: mental status grossly normal Affect: normal affect Attitude: cooperative Thought content: Yes Normal thought content present Discharge Plan Discharge Clinical Impression: Vomiting Qualifiers: Vomiting type: unspecified Vomiting Intractability: non-intractable Nausea presence: with nausea Qualified Code(s): R11.2 - Nausea with vomiting, unspecified Patient Disposition: Home, Self-Care Condi
[2020-10-08 21:15] VITALS: BP 101/62; PULSE 101; RESP 20; TEMP 36.8; O2SAT 100
[2020-10-08 21:17] LABS: Basophils Absolute Auto 0.02 K/mm3 (0.00-0.10); Basophils Percent Auto 0.2 % (0.0-1.0); Eosinophils Percent Auto 1.2 % (1.0-6.0); Hematocrit 41.7 % (35.0-49.0); Hemoglobin 14.2 g/dL (12.0-15.0); Immature Granulocyte Absolute 0.03 K/mm3 (0.00-0.00); Immature Granulocyte Percent A 0.4 % (0.0-0.0); Lymphocytes Absolute Auto 2.04 K/mm3 (1.10-4.50); Lymphocytes Percent Auto 24.1 % (18.0-42.0); Mean Corpuscular HGB Conc 34.1 g/dL (32.0-36.0); Mean Corpuscular Hemoglobin 30.4 pg (27.0-31.0); Mean Corpuscular Volume 89.3 fL (78.0-102.0); Mean Platelet Volume 10.8 fl (9.2-11.8); Monocytes Percent Auto 4.7 % (2.0-11.0); Neutrophils Absolute Auto 5.9 K/mm3 (1.7-7.2); Neutrophils Percent Auto 69.4 % (50.0-70.0); Platelet Count Result 226 K/mm3 (150-420); Red Blood Count 4.67 M/mm3 (4.20-5.40); Red Cell Distribution Width 12.8 % (11.6-14.4); White Blood Count 8.5 K/mm3 (4.8-10.8)
[2020-10-08 21:19] LABS: Add Urine Microscopic? NO; Appearance Urine Clear (Clear); Bilirubin Urine Negative (Negative); Blood Urine Negative (Negative); Color Urine Light Yellow (Yellow); Glucose Urine UA Negative (Negative); Ketones Urine Negative (Negative); Leukocyte Esterase Ur Negative LEU/UL (Negative); Nitrate Urine Negative (Negative); Protein Urine Negative (Negative); Urobilinogen Urine 0.2 mg/dL (0.2-1.0); pH Urine 6.5 (5.0-8.0)
[2020-10-08 21:32] LABS: Alanine Aminotransferase 29 U/L (14-59); Albumin Level 4.2 g/dL (3.4-5.0); Alkaline Phosphatase 60 U/L (46-116); Anion Gap 11 mmol/L (8-16); Aspartate Amino Transferase 21 U/L (15-37); Bilirubin,Total 0.3 mg/dL (0.00-1.00); Blood Urea Nitrogen 17 mg/dL (7-18); Calcium 8.8 mg/dL (8.5-10.1); Carbon Dioxide 27 mmol/L (21-32); Chloride 102 mmol/L (98-108); Estimated CRCL calculation 9 ml/min; Estimated Glomerular Filt Rate > 60; Glucose 98 mg/dL (70-99); Lipase 114 U/L (73-393); Osmolality Calculated 291 mOsm/kg (285-295); Potassium 3.7 mmol/L (3.5-5.1); Sodium 140 mmol/L (136-145); Total Protein 7.5 g/dL (6.4-8.2)
[2020-10-08] MEDS: ONDANSETRON HCL ODT 4 MG TABLET PO (21:45)
[2020-10-08 21:48] VITALS: BP 125/74; PULSE 87; RESP 20; TEMP 36.2; O2SAT 99
== END 2020-10-08 21:49 | disposition home or self-care (01) ==
PROVIDERS: Emergency Provider Emergency Medicine; PCP Emergency Medicine
DX: R11.2 Nausea with vomiting, unspecified (principal)
CPT/HCPCS: 36415; 80053; 81003; 83690; 85025; 99283; A9270

== ENCOUNTER 2020-10-26 14:04 | Emergency (ER) | payer MEDICARE, MEDICAID, SELFPAY ==
--- NOTE | ~2020-10-26 | XR_ITS ---
EXAMINATION: XR thoracic spine 3V EXAM DATE: 10/26/2020 15:12 INDICATION: Fall, back tenderness. TECHNIQUE: Frontal and lateral projections of the thoracic spine as well as lateral swimmers projecti on of the upper thoracic spine for interpretation. There is no prior study for comparison. FINDINGS: Minimal upper thoracic dextroscoliosis. There are no acute fractures identified. The verteb ral bodies are aligned in the AP dimension. Vertebral body and disc heights are well-maintained. Smal l midthoracic Schmorl's nodes, evidence of mild disc disease. IMPRESSION: 1. No acute thoracic findings. Reviewed, dictated and finalized at location B.
--- NOTE | 2020-10-26 14:17 | ED.BACK ---
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 She states that she has frequent falls these days due to her chorea. She states she is safe at home. She was standing when she fell backwards and while trying to catch herself she twisted her back. She denies any numbness, tingling or weakness. She denies any other injuries. Recent CT scan showed evidence of L5-S1 disc disease MD elicited complaint: back pain Pertinent past history: prior back pain and recent trauma Onset (ago): hour(s) Timing: constant Severity: moderate Quality: sharp Location: thoracic spine Radiation: none Exacerbating factors: movement ( and position) Context: fall Associated symptoms: denies other symptoms Related Data Home Medications Medication Instructions Recorded Confirmed albuterol sulfate 2 inh INHALATION Q4H PRN 06/24/20 10/26/20 aripiprazole [Abilify] 7.5 mg PO DAILY 06/24/20 10/26/20 bupropion HCl 150 mg PO DAILY 06/24/20 10/26/20 buspirone 30 mg PO BID 06/24/20 10/26/20 clonidine HCl 0.1 mg PO HS 06/24/20 10/26/20 lorazepam 0.5 mg PO BID 06/24/20 10/26/20 prazosin 1 mg PO HS 06/24/20 10/26/20 sertraline 200 mg PO DAILY 06/24/20 10/26/20 trazodone 100 mg PO HS 06/24/20 10/26/20 risperidone 0.5 mg PO BID 08/03/20 10/26/20 acyclovir 400 mg PO DAILY 10/26/20 10/26/20 famotidine 20 mg PO DAILY 10/26/20 10/26/20 Allergies Allergy/AdvReac Type Severity Reaction Status Date / Time No Known Allergies Allergy Verified 10/26/20 15:02 Review of Systems Constitutional: Constitutional: Denies chills and Denies fever(s) Eyes: Eyes: Denies change in vision and Denies photophobia ENT: Denies nasal congestion and Denies sore throat Cardiovascular: Cardiovascular: Denies chest pain and Denies radiating jaw, neck or arm pain Respiratory: Respiratory: Denies cough, Denies dyspnea and Denies wheezing Gastrointestinal: Gastrointestinal: Denies abdominal pain, Denies nausea and Denies vomiting Genitourinary: Genitourinary: Denies nocturia and Denies dysuria Musculoskeletal: Musculoskeletal: Reports back pain, Reports arthralgias ( frequent, especially in her hands and feet. Recent right knee injury) and Denies joint swelling Integumentary/Breasts: Skin/Breast: Denies pruritus, Denies erythema and Denies rash Neurologic: Denies vertigo, Denies dizziness, Denies syncope, Denies focal weakness and Denies numbness Hematologic/Lymphatic: Hematologic/Lymphatic: Denies easy bleeding and Denies easy bruising Allergic/Immunologic: Allergic/Immunologic: Denies lip swelling and Denies throat swelling PMFSH Past Medical History Medical History (Updated 10/26/20 @ 15:13 by Bill Thornton MD) Hu's disease Surgical History Surgical History History of History of tonsillectomy History of tubal ligation Family History Family History Mother Codington's disease Social History Social History Smoking status: Current some day smoker Alcohol intake: never Substance use: never Gender identity (if verbalized by the patient): Female Exam Const: General: healthy appearing and alert Orientation/consciousness: patient oriented x3 Limitations: no limitations Other: mild acute distress. HENMT: Head: normal to inspection Eyes: Conjunctivae: conjunctivae normal Pupils: Equal, round and reactive pupils present EOM: EOMs intact bilaterally Resp: Effort & Inspection: normal respiratory effort and not labored
[2020-10-26 14:38] VITALS: BP 123/81; PULSE 90; RESP 20; TEMP 36.7; O2SAT 100
[2020-10-26 15:55] VITALS: BP 116/70; PULSE 91; RESP 20; TEMP 36.8; O2SAT 100
== END 2020-10-26 15:55 | disposition home or self-care (01) ==
PROVIDERS: Emergency Provider Emergency Medicine; PCP Emergency Medicine
DX: M54.9 Dorsalgia, unspecified (principal)
CPT/HCPCS: 72072; 99283

== ENCOUNTER 2020-10-28 14:32 | Emergency (ER) | payer MEDICARE, MEDICAID, SELFPAY ==
--- NOTE | ~2020-10-28 | XR_ITS ---
EXAMINATION: XR elbow LT min 2V EXAM DATE: 10/28/2020 15:30 INDICATION: fall today, limited extension of elbow, lateral pain . Initial encounter. TECHNIQUE: Limited frontal, oblique crosstable projections (2 views). Apparently patient had difficul ty positioning for study. There are no prior studies for comparison. FINDINGS: Limited images demonstrate no fracture. No dislocation. No radiopaque foreign bodies ident ified. IMPRESSION: Limited, unremarkable left elbow 2 view exam. Reviewed, dictated and finalized at location B.
--- NOTE | ~2020-10-28 | XR_ITS ---
EXAMINATION: XR hand LT 2V DATE: 10/28/2020 15:30 INDICATION: Left hand injury. TECHNIQUE: 2 views of left hand were obtained. COMPARISON: None. FINDINGS: Bone alignment is normal. No fracture. Joint spaces are well maintained. IMPRESSION: 1. Normal left hand. Reviewed, dictated and finalized at location A. IMPRESSION: 1. Normal left hand.
[2020-10-28 14:50] VITALS: BP 124/83; PULSE 76; RESP 14; TEMP 37; O2SAT 99
--- NOTE | 2020-10-28 15:27 | ED.FALL ---
HPI - Fall General Chief Complaint: Extremity Injury, Upper Stated Complaint: hand injury Time Seen by Provider: 10/28/20 14:40 Source: patient and family Mode of arrival: ambulatory Limitations: no limitations History of Present Illness HPI Narrative: Patient comes in after fall. Fall happened about 81m this morning. She has complained of moderately severe, to severe pain in the left hand and wrist since the fall. Pain is sharp, made worse with movement, made better with rest. Pain has been ongoing since the fall, and was not improved with Tylenol. Nothing improved this prior to arrival. Onset (ago): hour(s) Fall from: standing Fall witnessed: no Place fall occurred: home Loss of consciousness: none Prolonged down time: no Symptoms prior to fall: none Context: tripped/slipped Severity: moderate Quality: sharp Related Data Home Medications Medication Instructions Recorded Confirmed albuterol sulfate 2 inh INHALATION Q4H PRN 06/24/20 10/28/20 aripiprazole [Abilify] 7.5 mg PO DAILY 06/24/20 10/28/20 bupropion HCl 150 mg PO DAILY 06/24/20 10/28/20 buspirone 30 mg PO BID 06/24/20 10/28/20 clonidine HCl 0.1 mg PO HS 06/24/20 10/28/20 lorazepam 0.5 mg PO BID 06/24/20 10/28/20 prazosin 1 mg PO HS 06/24/20 10/28/20 sertraline 200 mg PO DAILY 06/24/20 10/28/20 trazodone 100 mg PO HS 06/24/20 10/28/20 risperidone 0.5 mg PO BID 08/03/20 10/28/20 acyclovir 400 mg PO DAILY 10/26/20 10/28/20 famotidine 20 mg PO DAILY 10/26/20 10/28/20 Allergies Allergy/AdvReac Type Severity Reaction Status Date / Time No Known Allergies Allergy Verified 10/27/20 10:53 Review of Systems Constitutional: Constitutional: Reports no additional constitutional complaints Eyes: Eyes: Reports no additional eye complaints ENT: Reports system reviewed and no additional complaints, except as documented Cardiovascular: Cardiovascular: Reports no additional cardiovascular complaints Respiratory: Respiratory: Reports no additional respiratory complaints Gastrointestinal: Gastrointestinal: Reports no additional gastrointestinal complaints Genitourinary: Genitourinary: Reports no additional female genitourinary complaints Musculoskeletal: Musculoskeletal: Reports no additional musculoskeletal complaints Integumentary/Breasts: Skin/Breast: Reports system reviewed and no additional complaints, except as docu Neurologic: Reports system reviewed and no additional complaints, except as documented Psychiatric: Psychiatric: Reports no additional psychiatric complaints Endocrine: Endocrine: Reports no additional endocrine complaints Hematologic/Lymphatic: Hematologic/Lymphatic: Reports no additional hematologic/lymphatic complaints Allergic/Immunologic: Allergic/Immunologic: Reports no additional allergic/immunologic complaints [facility] Past Medical History Medical History Blaine's disease Surgical History Surgical History History of History of tonsillectomy History of tubal ligation Family History Family History Mother Blaine's disease Social History Social History Smoking status: Current some day smoker Alcohol intake: never Substance use: never Gender identity (if verbalized by the patient): Female Exam Const: General: no acute distress and alert Orientation/consciousness: patient oriented x3 HENMT: Head: normal to inspection Ears: external ears normal General nose exam: Normal external nose present Throat: posterior oropharynx normal Eyes: Conjunctivae: conjunctivae normal Neck: Neck: normal visual inspection Chest: Chest palpation & inspection: normal inspection of the chest Resp: Effort & Inspection: normal respiratory effort Auscultation: clear to auscultation bilaterally Cardio: Rate: regul
[2020-10-28] MEDS: KETOROLAC (*BKC) 60 MG/2 ML VIAL IM (15:30)
[2020-10-28 16:06] VITALS: BP 120/80; PULSE 72; RESP 14; TEMP 36.6; O2SAT 100
== END 2020-10-28 16:07 | disposition home or self-care (01) ==
PROVIDERS: Emergency Provider Emergency Medicine; PCP Emergency Medicine
DX: S63.502A Unspecified sprain of left wrist, initial encounter (principal); W19.XXXA Unspecified fall, initial encounter
CPT/HCPCS: 29125; 73080; 73120; 96372; 99283; 99284; J1885; L3908

== ENCOUNTER 2020-12-09 17:09 | Emergency (ER) | payer MEDICARE, MEDICAID, SELFPAY ==
--- NOTE | 2020-12-09 18:00 | PC.NURSE ---
PT TO REGISTRATION TO STATE THAT SHE IS GOING TO GO HOME AND DOES NOT WANT TO WAIT ANY LONGER.
== END 2020-12-09 18:00 | disposition left against medical advice (07) ==
LOC: CHSED 17:11
PROVIDERS: Emergency Provider Emergency Medicine; PCP Emergency Medicine
DX: Z04.9 Encounter for examination and observation for unspecified reason (principal)
CPT/HCPCS: 99199

== ENCOUNTER 2020-12-11 12:35 | Emergency (ER) | payer MEDICARE, MEDICAID, SELFPAY ==
[2020-12-11 13:00] VITALS: BP 90/58; PULSE 83; RESP 20; TEMP 36.9; O2SAT 98
--- NOTE | 2020-12-11 13:50 | ED.BACK ---
HPI - Back Pain/Injury General Chief Complaint: Back Pain/Injury Stated Complaint: back pain Time Seen by Provider: 12/11/20 12:38 Source: patient and RN notes reviewed Mode of arrival: ambulatory Limitations: no limitations History of Present Illness MD elicited complaint: back pain Pertinent past history: prior back pain Onset (ago): day(s) (1) Timing: constant Severity: mild Pain scale (0-10): 4 Similar Symptoms Previously: Yes Quality: dull, aching and spasming Location: lumbar spine Exacerbating factors: movement Relieving factors: immobilization Associated symptoms: weakness Treatments prior to arrival: NSAIDS and acetaminophen Work related injury: No Related Data Home Medications Medication Instructions Recorded Confirmed albuterol sulfate 2 inh INHALATION Q4H PRN 06/24/20 10/28/20 aripiprazole [Abilify] 7.5 mg PO DAILY 06/24/20 10/28/20 bupropion HCl 150 mg PO DAILY 06/24/20 10/28/20 buspirone 30 mg PO BID 06/24/20 10/28/20 clonidine HCl 0.1 mg PO HS 06/24/20 10/28/20 lorazepam 0.5 mg PO BID 06/24/20 10/28/20 prazosin 1 mg PO HS 06/24/20 10/28/20 sertraline 200 mg PO DAILY 06/24/20 10/28/20 trazodone 100 mg PO HS 06/24/20 10/28/20 risperidone 0.5 mg PO BID 08/03/20 10/28/20 acyclovir 400 mg PO DAILY 10/26/20 10/28/20 famotidine 20 mg PO DAILY 10/26/20 10/28/20 Allergies Allergy/AdvReac Type Severity Reaction Status Date / Time No Known Allergies Allergy Verified 11/01/20 10:33 Review of Systems Review of Systems: All systems reviewed & are unremarkable except as noted in HPI and below PMFSH Past Medical History Medical History Jackson's disease Surgical History Surgical History History of History of tonsillectomy History of tubal ligation Family History Family History Mother Jackson's disease Social History Social History Smoking status: Current some day smoker Alcohol intake: never Substance use: never Gender identity (if verbalized by the patient): Female Exam Const: General: no acute distress and alert Orientation/consciousness: patient oriented x3 Other: mild tremor noted. HENMT: Head: normal to inspection Ears: external ears normal and TM's normal bilaterally General nose exam: Normal external nose present and Normal nares present Mouth: Yes lip normal and Yes moist mucous membranes Teeth and gingiva: dentition normal Eyes: Conjunctivae: conjunctivae normal Pupils: Equal, round and reactive pupils present EOM: EOMs intact bilaterally Neck: Neck: normal visual inspection and no lymphadenopathy Chest: Chest palpation & inspection: normal inspection of the chest Resp: Effort & Inspection: normal respiratory effort Auscultation: clear to auscultation bilaterally Cardio: Rate: regular rate Rhythm: regular rhythm GI: GI Palp: Yes Soft to palpation Percussion: Yes normal to percussion (non-tender) Auscultation: normal bowel sounds : General: Yes bladder normal to palpation and Yes no CVA tenderness Back/Spine/Pelvis: Back: no CVA tenderness Other: no acute back abnormality Skin: General skin exam: normal color Rashes: no rashes Neuro: General: patient oriented x3, moves all extremities, no focal motor deficits and CN's II-XI intact bilaterally Extrem: General: normal to inspection and no pedal edema Psych: Appearance: grossly normal and well kempt Mental Status: mental status grossly normal Affect: normal affect Thought content: Yes Normal thought content present Course Course Emergency Course: Pt was stable in the ED. for home with Rx. Early PMD f/u. Reevaluation(s) Reevaluation #1: less back pain/spasm. Date: 12/11/20 Time: 13:51 Vital Signs Vital signs: Vital Signs Temperature 36.9 C 12/11/20 13:0
[2020-12-11] MEDS: KETOROLAC (*BKC) 60 MG/2 ML VIAL IM (14:00)
[2020-12-11 14:06] VITALS: BP 100/74; PULSE 81; RESP 20; TEMP 37; O2SAT 98
== END 2020-12-11 14:25 | disposition home or self-care (01) ==
PROVIDERS: Emergency Provider Emergency Medicine; PCP Emergency Medicine
DX: M62.830 Muscle spasm of back (principal)
CPT/HCPCS: 96372; 99283; J1885

== ENCOUNTER 2021-01-17 17:37 | Emergency (ER) | payer MEDICARE, MEDICAID, SELFPAY ==
[2021-01-17 18:02] VITALS: BP 105/85; PULSE 64; RESP 14; TEMP 36.3; O2SAT 99
--- NOTE | 2021-01-17 18:36 | ED.EXTPRO ---
HPI - Extremity Problem General Chief complaint: Extremity Injury, Lower Stated complaint: rt knee pain Source: patient and RN notes reviewed Mode of arrival: ambulatory Limitations: no limitations History of Present Illness HPI Narrative: Patient states that she was doing some lunges with her lower extremities 3 days ago and felt pain in her right knee where she has had a MCL tear in the past Complaint: extremity pain Onset (ago): day(s) (3) Pain Consistency: constant Location: right and knee Quality: aching and dull Radiation: none Relieving factors: nothing Exacerbating factors: weight bearing and walking Associated symptoms: denies other symptoms Context: other (MCL tear) Related Data Home Medications Medication Instructions Recorded Confirmed albuterol sulfate 2 inh INHALATION Q4H PRN 06/24/20 01/17/21 aripiprazole [Abilify] 7.5 mg PO DAILY 06/24/20 01/17/21 bupropion HCl 150 mg PO DAILY 06/24/20 01/17/21 buspirone 30 mg PO BID 06/24/20 01/17/21 clonidine HCl 0.1 mg PO HS 06/24/20 01/17/21 lorazepam 0.5 mg PO BID 06/24/20 01/17/21 prazosin 1 mg PO HS 06/24/20 01/17/21 sertraline 200 mg PO DAILY 06/24/20 01/17/21 trazodone 100 mg PO HS 06/24/20 01/17/21 risperidone 0.5 mg PO BID 08/03/20 01/17/21 acyclovir 400 mg PO DAILY 10/26/20 01/17/21 famotidine 20 mg PO DAILY 10/26/20 01/17/21 Allergies Allergy/AdvReac Type Severity Reaction Status Date / Time No Known Allergies Allergy Verified 11/01/20 10:33 Review of Systems Review of Systems: All systems reviewed & are unremarkable except as noted in HPI and below PMFSH Past Medical History Medical History (Updated 01/17/21 @ 18:52 by Tian Guerra MD) Hu's disease Surgical History Surgical History History of History of tonsillectomy History of tubal ligation Family History Family History Mother Hu's disease Social History Social History Smoking status: Current some day smoker Alcohol intake: never Substance use: never Gender identity (if verbalized by the patient): Female Exam Const: General: healthy appearing, no acute distress and alert Nutritional Appearance: well nourished Orientation/consciousness: patient oriented x3 Other: female nurse in room during examination. HENMT: Head: normal to inspection Ears: external ears normal Eyes: Conjunctivae: conjunctivae normal Pupils: Equal, round and reactive pupils present EOM: EOMs intact bilaterally Neck: Neck: normal visual inspection Resp: Effort & Inspection: normal respiratory effort Auscultation: clear to auscultation bilaterally Cardio: Rate: regular rate Rhythm: regular rhythm GI: GI Palp: Yes Soft to palpation, No Tenderness to palpation present (GI) and No Rebound tenderness present Auscultation: normal bowel sounds Back/Spine/Pelvis: Cervical Spine: cervical ROM normal Thoracic/Lumbar Spine: thoraco-lumbar ROM normal Skin: General skin exam: normal color Neuro: General: patient oriented x3, moves all extremities, no meningeal signs and no focal motor deficits Speech: normal speech Other: Limping gait Extrem: General: normal to inspection Right lower extremity: knee Details: tenderness Location: of the medial joint line and of the infrapatellar area, knee ligament exam abnormal Details: anterior drawer test normal (negative) and varus stress test normal (No laxity) Details: pain noted and Renae's Test Details: negative medially and laterally Psych: Appearance: grossly normal Mental Status: mental status grossly normal Affect: normal affect Attitude: cooperative Thought content: Yes Normal thought content present Course Vital Signs Vital signs: Vital Signs Temperature 36.3 C L 01/17/21 18:02 Pulse Rate 64 01/17/21 18:02 Respiratory Rate 14 01/17/21 18:02 B
[2021-01-17 18:56] VITALS: PULSE 61; RESP 14; O2SAT 100
== END 2021-01-17 19:00 | disposition home or self-care (01) ==
PROVIDERS: Emergency Provider Emergency Medicine; PCP Emergency Medicine
DX: S83.411S Sprain of medial collateral ligament of right knee, sequela (principal)
CPT/HCPCS: 99282; L1830

== ENCOUNTER 2021-01-27 14:06 | Emergency (ER) | payer MEDICARE, MEDICAID, SELFPAY ==
[2021-01-27 14:33] VITALS: BP 110/65; PULSE 61; RESP 18; TEMP 36.6; O2SAT 93
[2021-01-27 15:17] VITALS: RESP 15
[2021-01-27 15:21] LABS: Basophils Absolute Auto 0.02 K/mm3 (0.00-0.10); Basophils Percent Auto 0.3 % (0.0-1.0); Eosinophils Absolute Auto 0.11 K/mm3 (0.02-0.50); Eosinophils Percent Auto 1.9 % (1.0-6.0); Hematocrit 36.7 % (35.0-49.0); Hemoglobin 12.6 g/dL (12.0-15.0); Immature Granulocyte Absolute 0.01 K/mm3 (0.00-0.00); Immature Granulocyte Percent A 0.2 % (0.0-0.0); Lymphocytes Absolute Auto 1.42 K/mm3 (1.10-4.50); Lymphocytes Percent Auto 24.2 % (18.0-42.0); Mean Corpuscular HGB Conc 34.3 g/dL (32.0-36.0); Mean Corpuscular Hemoglobin 30.8 pg (27.0-31.0); Mean Corpuscular Volume 89.7 fL (78.0-102.0); Mean Platelet Volume 11.1 fl (9.2-11.8); Monocytes Percent Auto 5.1 % (2.0-11.0); Neutrophils Percent Auto 68.3 % (50.0-70.0); Platelet Count Result 192 K/mm3 (150-420); Red Blood Count 4.09 M/mm3 (4.20-5.40); Red Cell Distribution Width 12.8 % (11.6-14.4); White Blood Count 5.9 K/mm3 (4.8-10.8)
[2021-01-27 15:37] LABS: Alanine Aminotransferase 20 U/L (14-59); Albumin Level 4.1 g/dL (3.4-5.0); Alkaline Phosphatase 52 U/L (46-116); Anion Gap 10 mmol/L (8-16); Aspartate Amino Transferase 12 U/L (15-37); Bilirubin,Total 0.5 mg/dL (0.00-1.00); Blood Urea Nitrogen 14 mg/dL (7-18); Calcium 8.7 mg/dL (8.5-10.1); Carbon Dioxide 27 mmol/L (21-32); Chloride 104 mmol/L (98-108); Estimated Glomerular Filt Rate > 60; Ethanol < 3 mg/dL (0-6); Glucose 84 mg/dL (70-99); Osmolality Calculated 291 mOsm/kg (285-295); Potassium 3.7 mmol/L (3.5-5.1); Sodium 141 mmol/L (136-145); Total Protein 6.8 g/dL (6.4-8.2)
[2021-01-27 15:41] LABS: Lactic Acid Reflex 0.5 mmol/L (0.4-2.0)
--- NOTE | 2021-03-08 14:09 | ED.LOWEXIN ---
HPI - Extremity Injury (Lower) General Chief Complaint: Extremity Injury, Lower Stated Complaint: fell/lt knee pain Time Seen by Provider: 01/27/21 14:40 Source: patient and RN notes reviewed Mode of arrival: ambulatory Limitations: no limitations History of Present Illness complaint: knee injury and ankle injury Onset (ago): hour(s) (1) Type of Injury: hyperflexion Place: street/outdoors Severity: moderate Severity scale (1-10): 4 Relieving factors: immobilization Exacerbating factors: weight bearing Context: fall Associated symptoms: able to partially bear weight Other symptoms: none Related Data Home Medications Medication Instructions Recorded Confirmed albuterol sulfate 2 inh INHALATION Q4H PRN 06/24/20 01/27/21 aripiprazole [Abilify] 7.5 mg PO DAILY 06/24/20 01/27/21 bupropion HCl 150 mg PO DAILY 06/24/20 01/27/21 buspirone 30 mg PO BID 06/24/20 01/27/21 clonidine HCl 0.1 mg PO HS 06/24/20 01/27/21 lorazepam 0.5 mg PO BID 06/24/20 01/27/21 prazosin 1 mg PO HS 06/24/20 01/27/21 sertraline 200 mg PO DAILY 06/24/20 01/27/21 trazodone 100 mg PO HS 06/24/20 01/27/21 risperidone 0.5 mg PO BID 08/03/20 01/27/21 acyclovir 400 mg PO DAILY 10/26/20 01/27/21 famotidine 20 mg PO DAILY 10/26/20 01/27/21 Allergies Allergy/AdvReac Type Severity Reaction Status Date / Time No Known Allergies Allergy Verified 11/01/20 10:33 Review of Systems Review of Systems: All systems reviewed & are unremarkable except as noted in HPI and below Musculoskeletal: Musculoskeletal: Reports arthralgias PMFSH Past Medical History Medical History (Updated 03/08/21 @ 14:53 by Nell Hoover MD) Uh's disease Surgical History Surgical History History of History of tonsillectomy History of tubal ligation Family History Family History Mother [place]'s disease Social History Social History Smoking status: Current some day smoker Alcohol intake: never Substance use: never Gender identity (if verbalized by the patient): Female Exam Const: General: no acute distress and alert Orientation/consciousness: patient oriented x3 Limitations: no limitations Other: no acute tremors. HENMT: Head: normal to inspection Ears: external ears normal and TM's normal bilaterally General nose exam: Normal external nose present and Normal nares present Mouth: Yes lip normal and Yes moist mucous membranes Teeth and gingiva: dentition normal Eyes: Visual Galvez: normal visual galvez by confrontation Conjunctivae: conjunctivae normal Pupils: Equal, round and reactive pupils present EOM: EOMs intact bilaterally Neck: Neck: normal visual inspection Chest: Chest palpation & inspection: normal inspection of the chest Resp: Effort & Inspection: normal respiratory effort Auscultation: clear to auscultation bilaterally Cardio: Rate: regular rate Rhythm: regular rhythm GI: GI Palp: Yes Soft to palpation and No Tenderness to palpation present (GI) Percussion: Yes normal to percussion Auscultation: normal bowel sounds : General: Yes bladder normal to palpation and Yes no CVA tenderness Back/Spine/Pelvis: Back: no CVA tenderness Skin: General skin exam: normal color Neuro: General: patient oriented x3, moves all extremities, no meningeal signs, no focal motor deficits and CN's II-XI intact bilaterally Extrem: Other: no acute MS abnormality. Pt has mild stigmata of [place]'s Disease. Psych: Appearance: grossly normal and well kempt Mental Status: mental status grossly normal Affect: normal affect Attitude: cooperative Thought content: Yes Normal thought content present Course Course Emergency Course: Pt wanted to leave prior to completion of clinical work-up. She signed AMA and departed for home. Reevaluation(s) Reevaluatio
== END 2021-01-27 15:17 | disposition left against medical advice (07) ==
LOC: CHSED 14:08
PROVIDERS: Emergency Provider Emergency Medicine; PCP Emergency Medicine
DX: S93.402A Sprain of unspecified ligament of left ankle, initial encounter (principal); Z79.899 Other long term (current) drug therapy; G10 Huntington's disease; W19.XXXA Unspecified fall, initial encounter
CPT/HCPCS: 36415; 80053; 80307; 83605; 85025; 99282; 99283

== ENCOUNTER → 2021-02-03 18:25 | Emergency (ER) | payer MEDICARE, MEDICAID, SELFPAY | END | disposition left against medical advice (07) | PROVIDERS: Emergency Provider Emergency Medicine; PCP Emergency Medicine | DX: Z04.9 Encounter for examination and observation for unspecified reason (principal); Z53.8 Procedure and treatment not carried out for other reasons | CPT/HCPCS: 99199 ==

== ENCOUNTER 2021-03-02 16:18 | Emergency (ER) | payer MEDICARE, MEDICAID, SELFPAY ==
--- NOTE | ~2021-03-02 | CT_ITS ---
EXAMINATION: CT brain wo con, CT cervical spine wo con EXAM DATE: 03/02/2021 17:23 INDICATION: Head injury. Pt states to have LT posterior skull pain after fall x 1 day. TECHNIQUE: Spiral CT of the head was performed without contrast. Axial, coronal and sagittal images were reviewed. Spiral CT of the cervical spine was performed without contrast. Axial images were rev iewed. Coronal and sagittal reformatted images were also reviewed. The dose-length product (DLP) fo r this examination was 179.93 mGy-cm. The exposure was tailored according to patient size, and itera tive reconstruction (ASIR) was used as additional dose reduction technique. Comparison is made to ivy or examination from 03/18/2015. FINDINGS: HEAD CT: There is no acute intraparenchymal hemorrhage. No evidence of intraparenchymal brain mass l esion. No evidence of acute infarction. There is no mass effect or midline shift. There is no obstru ctive hydrocephalus suspected. There are no extra-axial collections. There are no acute calvarial f ractures. The orbits are unremarkable. Soft tissue is unremarkable. The visualized sinuses and mas toid air cells are well aerated. CERVICAL CT: There is mild reversal of the normal cervical lordosis which may be positional or spasm. There is no evidence of acute cervical fracture. The odontoid process is intact. Pre-dens space is normal. Prevertebral soft tissue is normal. There are no soft tissue abnormalities identified. Th ere is no disc space widening or traumatic vertebral body subluxation suspected. Vertebral body and disc heights are well-maintained. A detailed level by level evaluation of spondylosis can be added as addendum if requested. IMPRESSION: 1. No acute intracranial findings or cervical fracture. 2. Mild reversal normal cervical lordosis. Reviewed, dictated and finalized at location A. PERER ASSEMBLER IMPRESSION: 1. No acute intracranial findings or cervical fracture. 2. Mild reversal normal cervical lordosis.
--- NOTE | 2021-03-02 16:28 | ECG_ITS ---
Measurements Intervals [place] Rate: 85 P: 79 [place]: 139 QRS: 49 QRSD: 93 T: 77 QT: 388 QTc: 464 Interpretive Statements SINUS RHYTHM WITH SINUS ARRHYTHMIA DELAYED PRECORDIAL R/S TRANSITION BORDERLINE ST-T WAVE ABNORMALITY- LAT/HIGH LAT LEADS BASELINE ARTIFACT- I, III, AVL BORDERLINE ECG Electronically Signed On 03-02-2021 20:00:14 ADMINISTRATIVE OFFICE ASSISTANT by Tae Ricardo D.O.
[2021-03-02 16:33] VITALS: BP 151/114; PULSE 96; RESP 20; O2SAT 98
[2021-03-02] MEDS: KETOROLAC (*BKC) 60 MG/2 ML VIAL IM (16:50)
[2021-03-02 16:59] LABS: Basophils Absolute Auto 0.02 K/mm3 (0.00-0.10); Basophils Percent Auto 0.3 % (0.0-1.0); Eosinophils Absolute Auto 0.07 K/mm3 (0.02-0.50); Hematocrit 37.5 % (35.0-49.0); Hemoglobin 12.9 g/dL (12.0-15.0); Immature Granulocyte Absolute 0.01 K/mm3 (0.00-0.00); Immature Granulocyte Percent A 0.1 % (0.0-0.0); Lymphocytes Absolute Auto 1.57 K/mm3 (1.10-4.50); Lymphocytes Percent Auto 22.4 % (18.0-42.0); Mean Corpuscular HGB Conc 34.4 g/dL (32.0-36.0); Mean Corpuscular Volume 90.1 fL (78.0-102.0); Monocytes Absolute Auto 0.37 K/mm3 (0.10-0.90); Monocytes Percent Auto 5.3 % (2.0-11.0); Neutrophils Percent Auto 70.9 % (50.0-70.0); Platelet Count Result 181 K/mm3 (150-420); Red Blood Count 4.16 M/mm3 (4.20-5.40); Red Cell Distribution Width 12.6 % (11.6-14.4)
[2021-03-02 17:13] LABS: Alanine Aminotransferase 31 U/L (14-59); Albumin Level 3.9 g/dL (3.4-5.0); Alkaline Phosphatase 56 U/L (46-116); Anion Gap 12 mmol/L (8-16); Aspartate Amino Transferase 13 U/L (15-37); Bilirubin,Total 0.3 mg/dL (0.00-1.00); Blood Urea Nitrogen 13 mg/dL (7-18); Calcium 8.5 mg/dL (8.5-10.1); Carbon Dioxide 26 mmol/L (21-32); Chloride 104 mmol/L (98-108); Estimated CRCL calculation 96 ml/min; Estimated Glomerular Filt Rate > 60; Glucose 116 mg/dL (70-99); Osmolality Calculated 295 mOsm/kg (285-295); Potassium 3.4 mmol/L (3.5-5.1); Sodium 142 mmol/L (136-145); Total Protein 6.8 g/dL (6.4-8.2)
[2021-03-02 17:18] LABS: Troponin I 4.2 ng/L (0.00-60.4)
--- NOTE | 2021-03-02 17:35 | ED.HEATRA ---
HPI - Head Injury General Chief complaint: Head Injury Stated complaint: trouble breathing, headache Source: patient Mode of arrival: ambulatory Limitations: no limitations History of Present Illness HPI Narrative: this is a 30-year-old female that presents with some chest tightness that is reproducible with palpation fell back yesterday striking the back of her head with no loss of consciousness having some neck pain and headache, currently there is some nausea with no vomiting there is no shortness of breath no fever chills no blurry vision. 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 There is no abdominal pain no diarrhea constipation no dysuria no hematuria. Complaint: head injury and head pain Onset (ago): day(s) Mechanism of Injury: fall Place: home Loss of Consciousness: no Location of injury: occipital Severity: moderate Severity scale (1-10): 6 Related Data Home Medications Medication Instructions Recorded Confirmed albuterol sulfate 2 inh INHALATION Q4H PRN 06/24/20 01/27/21 aripiprazole [Abilify] 7.5 mg PO DAILY 06/24/20 01/27/21 bupropion HCl 150 mg PO DAILY 06/24/20 01/27/21 buspirone 30 mg PO BID 06/24/20 01/27/21 clonidine HCl 0.1 mg PO HS 06/24/20 01/27/21 lorazepam 0.5 mg PO BID 06/24/20 01/27/21 prazosin 1 mg PO HS 06/24/20 01/27/21 sertraline 200 mg PO DAILY 06/24/20 01/27/21 trazodone 100 mg PO HS 06/24/20 01/27/21 risperidone 0.5 mg PO BID 08/03/20 01/27/21 acyclovir 400 mg PO DAILY 10/26/20 01/27/21 famotidine 20 mg PO DAILY 10/26/20 01/27/21 Allergies Allergy/AdvReac Type Severity Reaction Status Date / Time No Known Allergies Allergy Verified 11/01/20 10:33 Review of Systems Review of Systems: All systems reviewed & are unremarkable except as noted in HPI and below PMFSH Past Medical History Medical History (Updated 03/02/21 @ 17:39 by Julian Hilliard MD) [place]'s disease Surgical History Surgical History History of History of tonsillectomy History of tubal ligation Family History Family History Mother [place]'s disease Social History Social History Smoking status: Current some day smoker Alcohol intake: never Substance use: never Gender identity (if verbalized by the patient): Female Exam Const: General: no acute distress and alert Orientation/consciousness: patient oriented x3 HENMT: Head: normal to inspection Eyes: Conjunctivae: conjunctivae normal Pupils: Equal, round and reactive pupils present Neck: Neck: normal visual inspection, no lymphadenopathy and no meningeal signs Chest: Chest palpation & inspection: normal inspection of the chest Resp: Effort & Inspection: normal respiratory effort Cardio: Rate: regular rate Rhythm: regular rhythm GI: GI Palp: Yes Soft to palpation Percussion: Yes normal to percussion : General: Yes no CVA tenderness Back/Spine/Pelvis: Back: no CVA tenderness Skin: General skin exam: normal color Rashes: no rashes Neuro: General: patient oriented x3, moves all extremities, no meningeal signs and no focal motor deficits Cranial nerves: Yes CN's II-XII intact bilaterally and Yes Nystagmus not present Extrem: General: normal to inspection and no pedal edema Psych: Mental Status: mental status grossly normal Affect: normal affect Attitude: cooperative Course Course Emergency Course: Patient received IM Toradol says her headache is mildly improved, reviewed CT scan and blood work along with EKG with patient. Vital Signs Vital signs: Vital Signs Pulse Rate 96 03/02/21 16:33 Respiratory Rate 20 03/02/21 16:33 Blood Pressure 151/114 H 03/02/21 16:33 Pulse Oximetry 98 03/02/21 16:33 Pulse Rate 96 03/02/21 16:33 Respiratory Rate 20 03/02/21 16:33 Bl
[2021-03-02 17:43] VITALS: BP 111/83; PULSE 75; RESP 18; O2SAT 99
== END 2021-03-02 17:47 | disposition home or self-care (01) ==
PROVIDERS: Emergency Provider Emergency Medicine; PCP Emergency Medicine
DX: S09.90XA Unspecified injury of head, initial encounter (principal); R51.9 Headache, unspecified; W19.XXXA Unspecified fall, initial encounter; G10 Huntington's disease
CPT/HCPCS: 36415; 70450; 72125; 80053; 84484; 85025; 93005; 96372; 99283; 99284; J1885

== ENCOUNTER 2021-03-05 13:54 | Emergency (ER) | payer MEDICARE, MEDICAID, SELFPAY ==
--- NOTE | ~2021-03-05 | XR_ITS ---
EXAMINATION: XR forearm LT 2V DATE: 03/05/2021 15:20 INDICATION: Left forearm injury and pain. TECHNIQUE: 2 views of left forearm were obtained. COMPARISON: None. FINDINGS: Bone alignment is normal. No fracture. Joint spaces are well maintained. There is no elbow joint effusion. IMPRESSION: 1. Normal left forearm. Reviewed, dictated and finalized at location A. ITY ENGINEER MEDICAL DEVICE IMPRESSION: 1. Normal left forearm.
--- NOTE | ~2021-03-05 | XR_ITS ---
EXAMINATION: XR tibia fibula LT 2V DATE: 03/05/2021 15:21 INDICATION: Left lower leg pain. Fall. TECHNIQUE: 2 views of left tibia and fibula were obtained. COMPARISON: None. FINDINGS: Bone alignment is normal. No fracture. Joint spaces are well maintained. IMPRESSION: 1. No fracture. Reviewed, dictated and finalized at location A. INE MEASUREMENTS ENGINEER IMPRESSION: 1. No fracture.
--- NOTE | ~2021-03-05 | XR_ITS ---
EXAMINATION: XR hand LT min 3V DATE: 03/05/2021 15:21 INDICATION: Left hand pain. Fall. TECHNIQUE: 3 views of left hand were obtained. COMPARISON: Left hand radiographs 10/28/2020 FINDINGS: Bone alignment is normal. No fracture. Joint spaces are well maintained. IMPRESSION: 1. No fracture. Reviewed, dictated and finalized at location A. CT SERVICE PROFESSIONAL IMPRESSION: 1. No fracture.
[2021-03-05 14:07] VITALS: BP 120/85; PULSE 66; RESP 20; TEMP 36.8; O2SAT 100
--- NOTE | 2021-03-05 14:13 | ED.FALL ---
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 Patient states that she did not hit her head, did not feel lightheaded or chest pain or palpitations prior to the fall and did not lose consciousness. Patient states that she has had a cough, rash, shortness of breath, and fatigue over the last week but her symptoms seem to be improving. She is concerned that she has COVID. She was tested on 03/02/2021 by antigen test and was negative. She denies nausea, vomiting, abdominal pain, chest pain, fever and weakness. MD complaint: fall Onset (ago): hour(s) Fall from: standing Fall witnessed: no Place fall occurred: home Loss of consciousness: none Prolonged down time: no Symptoms prior to fall: none Context: tripped/slipped Location of injury - extremities: Left: arm, elbow, hand, lower leg and ankle Severity: moderate Quality: sharp and aching Associated symptoms (after fall): denies Related Data Home Medications Medication Instructions Recorded Confirmed albuterol sulfate 2 inh INHALATION Q4H PRN 06/24/20 01/27/21 aripiprazole [Abilify] 7.5 mg PO DAILY 06/24/20 01/27/21 bupropion HCl 150 mg PO DAILY 06/24/20 01/27/21 buspirone 30 mg PO BID 06/24/20 01/27/21 clonidine HCl 0.1 mg PO HS 06/24/20 01/27/21 lorazepam 0.5 mg PO BID 06/24/20 01/27/21 prazosin 1 mg PO HS 06/24/20 01/27/21 sertraline 200 mg PO DAILY 06/24/20 01/27/21 trazodone 100 mg PO HS 06/24/20 01/27/21 risperidone 0.5 mg PO BID 08/03/20 01/27/21 acyclovir 400 mg PO DAILY 10/26/20 01/27/21 famotidine 20 mg PO DAILY 10/26/20 01/27/21 Allergies Allergy/AdvReac Type Severity Reaction Status Date / Time No Known Allergies Allergy Verified 11/01/20 10:33 Review of Systems Review of Systems: All systems reviewed & are unremarkable except as noted in HPI and below Constitutional: Constitutional: Denies chills and Denies fever(s) Eyes: Eyes: Denies change in vision and Denies photophobia ENT: Denies nasal congestion and Denies sore throat Cardiovascular: Cardiovascular: Denies chest pain and Denies radiating jaw, neck or arm pain Respiratory: Respiratory: Reports cough, Reports dyspnea and Denies wheezing Gastrointestinal: Gastrointestinal: Denies abdominal pain, Denies diarrhea, Denies nausea and Denies vomiting Genitourinary: Genitourinary: Denies hematuria, Denies nocturia and Denies dysuria Musculoskeletal: Musculoskeletal: Reports as per HPI, Denies back pain and Denies joint swelling Integumentary/Breasts: Skin/Breast: Denies pruritus, Denies erythema and Denies rash Neurologic: Denies confusion, Denies vertigo, Denies dizziness, Denies syncope, Denies headache(s) and Denies focal weakness Hematologic/Lymphatic: Hematologic/Lymphatic: Denies easy bleeding and Denies easy bruising Allergic/Immunologic: Allergic/Immunologic: Denies lip swelling and Denies throat swelling PMFSH Past Medical History Medical History (Updated 03/05/21 @ 17:27 by Bill Thornton MD) Neihart's disease Surgical History Surgical History History of History of tonsillectomy History of tubal ligation Family History Family History Mother Neihart's disease Social History Social History Smoking status: Current some day smoker Alcohol intake: never Substance use: never Gender identity (if verbalized by the patient): Female Exam Const: General: healthy manfred
[2021-03-05] MEDS: HYDROcodone/acetaminophen (*CRX) 5-325 MG TABLET 1 TAB PO (15:08)
[2021-03-05 17:10] LABS: Influenza A QL RT-PCR Negative (Negative); Influenza B QL RT-PCR Negative (Negative); SARS-CoV-2 RNA PCR Negative (Negative)
[2021-03-05 17:39] VITALS: BP 102/84; PULSE 60; RESP 20; TEMP 36.7; O2SAT 96
== END 2021-03-05 17:43 | disposition home or self-care (01) ==
PROVIDERS: Emergency Provider Emergency Medicine; PCP Emergency Medicine
DX: T14.8XXA Other injury of unspecified body region, initial encounter (principal); W18.30XA Fall on same level, unspecified, initial encounter; Z20.822 Contact with and (suspected) exposure to COVID-19
CPT/HCPCS: 73090; 73130; 73590; 87502; 99282; 99284; A9270; C9803; U0003; U0005

== ENCOUNTER 2021-03-09 18:53 | Emergency (ER) | payer MEDICARE, MEDICAID, SELFPAY ==
--- NOTE | ~2021-03-09 | XR_ITS ---
EXAMINATION: XR chest 1V portable DATE: 03/09/2021 19:35 INDICATION: Dyspnea and central chest pain TECHNIQUE: frontal view of the chest was obtained. COMPARISON: Chest radiograph dated 08/03/2020 FINDINGS: The lungs remain clear with no focal airspace opacities, pulmonary edema, pleural effusion or pneumot horax. The cardiomediastinal silhouette is normal. Visualized bones and soft tissues are unremarkable . IMPRESSION: 1. Normal chest radiograph. Reviewed, dictated and finalized at location A. TOR HEAD IMPRESSION: 1. Normal chest radiograph.
[2021-03-09 19:00] VITALS: BP 109/67; PULSE 69; RESP 20; TEMP 36.6; O2SAT 96
--- NOTE | 2021-03-09 19:09 | ECG_ITS ---
Measurements Intervals [place] Rate: 48 P: 54 [place]: 153 QRS: 44 QRSD: 89 T: 48 QT: 450 QTc: 402 Interpretive Statements SINUS BRADYCARDIA BORDERLINE R WAVE PROGRESSION, ANTERIOR LEADS BASELINE ARTIFACT- I, II, AVR ABNORMAL ECG Electronically Signed On 03-10-2021 7:33:35 PC TECHNICIAN by Tae Ricardo D.O.
[2021-03-09 19:21] LABS: Basophils Absolute Auto 0.03 K/mm3 (0.00-0.10); Basophils Percent Auto 0.6 % (0.0-1.0); Eosinophils Percent Auto 3.9 % (1.0-6.0); Hematocrit 38.6 % (35.0-49.0); Hemoglobin 13.3 g/dL (12.0-15.0); Immature Granulocyte Absolute 0.01 K/mm3 (0.00-0.00); Immature Granulocyte Percent A 0.2 % (0.0-0.0); Lymphocytes Absolute Auto 1.86 K/mm3 (1.10-4.50); Lymphocytes Percent Auto 36.3 % (18.0-42.0); Mean Corpuscular HGB Conc 34.5 g/dL (32.0-36.0); Mean Platelet Volume 10.8 fl (9.2-11.8); Monocytes Absolute Auto 0.38 K/mm3 (0.10-0.90); Monocytes Percent Auto 7.4 % (2.0-11.0); Neutrophils Absolute Auto 2.7 K/mm3 (1.7-7.2); Neutrophils Percent Auto 51.6 % (50.0-70.0); Platelet Count Result 210 K/mm3 (150-420); Red Blood Count 4.29 M/mm3 (4.20-5.40); Red Cell Distribution Width 12.6 % (11.6-14.4); White Blood Count 5.1 K/mm3 (4.8-10.8)
[2021-03-09 19:37] LABS: Alanine Aminotransferase 27 U/L (14-59); Albumin Level 3.9 g/dL (3.4-5.0); Alkaline Phosphatase 61 U/L (46-116); Anion Gap 7 mmol/L (8-16); Aspartate Amino Transferase 13 U/L (15-37); Bilirubin,Total 0.2 mg/dL (0.00-1.00); Blood Urea Nitrogen 12 mg/dL (7-18); Calcium 8.5 mg/dL (8.5-10.1); Carbon Dioxide 30 mmol/L (21-32); Chloride 103 mmol/L (98-108); Estimated Glomerular Filt Rate > 60; Glucose 66 mg/dL (70-99); Osmolality Calculated 287 mOsm/kg (285-295); Potassium 3.4 mmol/L (3.5-5.1); Sodium 140 mmol/L (136-145); Total Protein 6.7 g/dL (6.4-8.2)
[2021-03-09 20:19] LABS: Thyroid Stimulating Hormone 1.96 uIU/mL (0.36-3.74); Troponin I 6.4 ng/L (0.00-60.4)
--- NOTE | 2021-03-09 20:26 | ED.URI ---
HPI - URI/Sore Throat General Chief Complaint: Upper Respiratory Infection Stated Complaint: amb Source: patient Mode of arrival: ambulatory History of Present Illness HPI Narrative: this is a 30-year-old female with history of [place]'s chorea presents with some coughing congestion and left-sided rib pain with deep inspiration, currently no fever chills no chest pain mild shortness of breath with mild cough nonproductive with no abdominal pain no dysuria no headaches, no nausea vomiting. The patient did have a negative code COVID test 2 days ago. MD elicited complaint: cough and nasal congestion Onset (ago): day(s) Consistency: constant Severity: mild Related Data Home Medications Medication Instructions Recorded Confirmed albuterol sulfate 2 inh INHALATION Q4H PRN 06/24/20 01/27/21 aripiprazole [Abilify] 7.5 mg PO DAILY 06/24/20 01/27/21 bupropion HCl 150 mg PO DAILY 06/24/20 01/27/21 buspirone 30 mg PO BID 06/24/20 01/27/21 clonidine HCl 0.1 mg PO HS 06/24/20 01/27/21 lorazepam 0.5 mg PO BID 06/24/20 01/27/21 prazosin 1 mg PO HS 06/24/20 01/27/21 sertraline 200 mg PO DAILY 06/24/20 01/27/21 trazodone 100 mg PO HS 06/24/20 01/27/21 risperidone 0.5 mg PO BID 08/03/20 01/27/21 acyclovir 400 mg PO DAILY 10/26/20 01/27/21 famotidine 20 mg PO DAILY 10/26/20 01/27/21 Allergies Allergy/AdvReac Type Severity Reaction Status Date / Time No Known Allergies Allergy Verified 11/01/20 10:33 Review of Systems Review of Systems: All systems reviewed & are unremarkable except as noted in HPI and below PMFSH Past Medical History 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 Surgical History Surgical History History of History of tonsillectomy History of tubal ligation Family History Family History Mother [place]'s disease Social History Social History Smoking status: Current some day smoker Alcohol intake: never Substance use: never Gender identity (if verbalized by the patient): Female Exam Const: General: no acute distress and alert Orientation/consciousness: patient oriented x3 HENMT: Head: normal to inspection Eyes: Conjunctivae: conjunctivae normal Pupils: Equal, round and reactive pupils present Neck: Neck: normal visual inspection, no lymphadenopathy and no meningeal signs Chest: Chest palpation & inspection: normal inspection of the chest Resp: Effort & Inspection: normal respiratory effort Auscultation: clear to auscultation bilaterally Cardio: Rate: regular rate Rhythm: regular rhythm GI: GI Palp: Yes Soft to palpation Percussion: Yes normal to percussion : General: Yes no CVA tenderness Urinary Catheter: Urinary Catheter: patent and draining Back/Spine/Pelvis: Back: no CVA tenderness Neuro: General: patient oriented x3 Extrem: General: normal to inspection and no pedal edema Psych: Mental Status: mental status grossly normal Course Course Emergency Course: Labs and x-rays reviewed with patient will give her dose of ceftriaxone IM 1g. MDM - URI/Sore Throat Lab Data Result diagrams: 03/09/21 19:17 03/09/21 19:17 Labs: Lab Results 03/09/21 03/09/21 03/09/21 Range/Units 19:17 19:17 19:17 WBC 5.1 (4.8-10.8) K/mm3 RBC 4.29 (4.20-5.40) M/mm3 Hgb 13.3 (12.0-15.0) g/dL Hct 38.6 (35.0-49.0) % MCV 90.0 (78.0-102.0) fL MCH 31.0 (27.0-31.0) pg MCHC 34.5 (32.0-36.0) g/dL RDW 12.6 (11.6-14.4) % Plt Count 210 (150-420) K/mm3 MPV 10.8 (9.2-11.8) fl Immature Gran % (Auto) 0.2 H (0.0-0.0) % Neut % (Auto) 51.6 (50.0-70.0) % Lymph % (Auto) 36.3 (18.0-42.0) % Dewitt % (Auto) 7.4 (2.0-11.0) % Eos % (Auto) 3.9 (1.0-6.0) % Baso % (Auto) 0.6 (
[2021-03-09 20:31] LABS: Influenza Control Valid (Valid)
[2021-03-09 21:01] VITALS: BP 103/71; PULSE 62; RESP 20; TEMP 37.1; O2SAT 98
== END 2021-03-09 21:15 | disposition home or self-care (01) ==
PROVIDERS: Emergency Provider Emergency Medicine
DX: J06.9 Acute upper respiratory infection, unspecified (principal); G10 Huntington's disease; Z79.899 Other long term (current) drug therapy; F17.200 Nicotine dependence, unspecified, uncomplicated
CPT/HCPCS: 36415; 71045; 80053; 84443; 84484; 85025; 87804; 93005; 99283; 99284

== ENCOUNTER 2021-04-28 17:09 | Outpatient (CLI) | payer MEDICARE, MEDICAID, SELFPAY ==
[2021-04-28 19:41] LABS: SARS-CoV-2 RNA PCR Positive (Negative)
== END 2021-04-28 17:10 | disposition home or self-care (01) ==
LOC: CHSLAB 17:13
PROVIDERS: PCP Emergency Medicine; Visit Provider Emergency Medicine
DX: U07.1 COVID-19 (principal); Z01.818 Encounter for other preprocedural examination
CPT/HCPCS: C9803; U0003; U0005

== ENCOUNTER 2021-05-01 12:08 | Emergency (ER) | payer MEDICARE, MEDICAID, SELFPAY ==
--- NOTE | ~2021-05-01 | XR_ITS ---
EXAMINATION: XR chest 1V portable EXAM DATE: 05/01/2021 13:38 INDICATION: COVID positive Feels short of breath,Cough,LOW BP. TECHNIQUE: Portable AP frontal chest x-ray was obtained. There is no prior study for comparison. FINDINGS: The lungs are clear. There are no pleural effusions. The cardiomediastinal silhouette is within normal limits. There is no pneumothorax suspected. The bones and soft tissues are unremarkab le. There is no significant interval change. IMPRESSION: No acute cardiopulmonary findings. Reviewed, dictated and finalized at location A. CY MANAGER
[2021-05-01 12:22] VITALS: BP 116/81; PULSE 94; RESP 16; TEMP 36.6; O2SAT 98
--- NOTE | 2021-05-01 13:26 | ED.URI ---
HPI - URI/Sore Throat General Chief Complaint: Upper Respiratory Infection Stated Complaint: positive covid /trouble breathing Source: patient, RN notes reviewed and old records reviewed Mode of arrival: ambulatory Limitations: no limitations History of Present Illness HPI Narrative: Patient started having symptoms 5 days ago. Tested positive for COVID 3 days ago. She feels like she is getting more short of breath. She is coughing frequently. Feels like her muscles are sore from coughing so much. She denies any chest pain. MD elicited complaint: cough Onset (ago): day(s) (5) Consistency: intermittent Severity: mild Able to tolerate fluids by mouth: Yes Exacerbating factors: other (coughing) Relieving factors: nothing Associated symptoms: shortness of breath Treatments prior to arrival: none Related Data Home Medications Medication Instructions Recorded Confirmed aripiprazole [Abilify] 5 mg PO BID 06/24/20 05/01/21 bupropion HCl 150 mg PO DAILY 06/24/20 05/01/21 buspirone 30 mg PO BID 06/24/20 05/01/21 clonidine HCl 0.1 mg PO HS 06/24/20 05/01/21 lorazepam 0.5 mg PO BID 06/24/20 05/01/21 prazosin 1 mg PO HS 06/24/20 05/01/21 sertraline 200 mg PO DAILY 06/24/20 05/01/21 trazodone 100 mg PO HS 06/24/20 05/01/21 risperidone 0.5 mg PO BID 08/03/20 05/01/21 mirabegron [Myrbetriq] 25 mg PO DAILY 05/01/21 05/01/21 tramadol 50 mg PO DAILY 05/01/21 05/01/21 Allergies Allergy/AdvReac Type Severity Reaction Status Date / Time No Known Allergies Allergy Verified 11/01/20 10:33 Review of Systems Review of Systems: All systems reviewed & are unremarkable except as noted in HPI and below Constitutional: Constitutional: Denies chills and Denies fever(s) Cardiovascular: Cardiovascular: Denies chest pain Respiratory: Respiratory: Reports as per HPI Gastrointestinal: Gastrointestinal: Denies diarrhea, Denies nausea and Denies vomiting PMF Past Medical History Medical History (Updated 05/01/21 @ 15:07 by Tian Guerra MD) [place]'s disease Surgical History Surgical History History of History of tonsillectomy History of tubal ligation Family History Family History Mother [place]'s disease Social History Social History (Updated 05/01/21 @ 13:27 by Tian Guerra MD) Smoking status: Current some day smoker Alcohol intake: former Substance use: current Substance use type: marijuana Gender identity (if verbalized by the patient): Female Exam Const: General: healthy appearing, no acute distress and alert Nutritional Appearance: well nourished and thin Orientation/consciousness: patient oriented x3 Other: female nurse in room during examination HENMT: Head: normal to inspection Eyes: Conjunctivae: conjunctivae normal Pupils: Equal, round and reactive pupils present EOM: EOMs intact bilaterally Neck: Neck: normal visual inspection and no lymphadenopathy Resp: Effort & Inspection: normal respiratory effort Auscultation: clear to auscultation bilaterally Cardio: Rate: regular rate Rhythm: regular rhythm GI: GI Palp: Yes Soft to palpation, No Tenderness to palpation present (GI) and No Guarding due to palpation present (GI) Auscultation: normal bowel sounds Back/Spine/Pelvis: Cervical Spine: cervical ROM normal Thoracic/Lumbar Spine: thoraco-lumbar ROM normal Skin: General skin exam: normal color Rashes: no rashes Neuro: General: patient oriented x3, moves all extremities, no meningeal signs, no focal motor deficits and CN's II-XI intact bilaterally Speech: normal speech Gait exam (Neuro): Normal gait present Other: mild rhythmic motions associated with her Hu's Extrem: General: normal to inspection and no clubbing, cyanosis or edema Psych: Appearance: grossly normal and well kempt Mental Status: mental status grossly normal Affect: normal
[2021-05-01 13:42] LABS: Eosinophils Absolute Auto 0.05 K/mm3 (0.02-0.50); Eosinophils Percent Auto 1.2 % (1.0-6.0); Hematocrit 39.6 % (35.0-49.0); Hemoglobin 13.3 g/dL (12.0-15.0); Immature Granulocyte Absolute 0.01 K/mm3 (0.00-0.00); Immature Granulocyte Percent A 0.2 % (0.0-0.0); Lymphocytes Absolute Auto 1.28 K/mm3 (1.10-4.50); Lymphocytes Percent Auto 29.8 % (18.0-42.0); Mean Corpuscular HGB Conc 33.6 g/dL (32.0-36.0); Mean Corpuscular Hemoglobin 30.2 pg (27.0-31.0); Mean Platelet Volume 11.1 fl (9.2-11.8); Monocytes Absolute Auto 0.28 K/mm3 (0.10-0.90); Monocytes Percent Auto 6.5 % (2.0-11.0); Neutrophils Absolute Auto 2.7 K/mm3 (1.7-7.2); Neutrophils Percent Auto 62.3 % (50.0-70.0); Platelet Count Result 183 K/mm3 (150-420); Red Cell Distribution Width 12.4 % (11.6-14.4); White Blood Count 4.3 K/mm3 (4.8-10.8)
[2021-05-01 13:59] LABS: D Dimer 0.28 mg/L (0.19-0.50)
[2021-05-01 14:10] LABS: Alanine Aminotransferase 40 U/L (14-59); Albumin Level 3.8 g/dL (3.4-5.0); Alkaline Phosphatase 55 U/L (46-116); Anion Gap 9 mmol/L (8-16); Aspartate Amino Transferase 13 U/L (15-37); Bilirubin,Total 0.3 mg/dL (0.00-1.00); Blood Urea Nitrogen 11 mg/dL (7-18); Calcium 8.6 mg/dL (8.5-10.1); Carbon Dioxide 28 mmol/L (21-32); Chloride 102 mmol/L (98-108); Estimated CRCL calculation 103 ml/min; Estimated Glomerular Filt Rate > 60; Ferritin 35 ng/mL (8-252); Glucose 79 mg/dL (70-99); Osmolality Calculated 286 mOsm/kg (285-295); Potassium 3.6 mmol/L (3.5-5.1); Sodium 139 mmol/L (136-145); Total Protein 7.2 g/dL (6.4-8.2)
[2021-05-01 14:19] LABS: Lactic Acid Reflex 0.6 mmol/L (0.4-2.0)
== END 2021-05-01 15:19 | disposition home or self-care (01) ==
PROVIDERS: Emergency Provider Emergency Medicine; PCP Emergency Medicine
DX: U07.1 COVID-19 (principal); G10 Huntington's disease; F17.200 Nicotine dependence, unspecified, uncomplicated
CPT/HCPCS: 36415; 71045; 80053; 82728; 83605; 83735; 85025; 85380; 99282; 99283

== ENCOUNTER 2021-05-19 17:07 | Emergency (ER) | payer MEDICARE, MEDICAID, SELFPAY ==
--- NOTE | 2021-05-19 17:08 | ECG_ITS ---
Measurements Intervals [place] Rate: 63 P: 35 WA: 144 QRS: 17 QRSD: 89 T: 34 QT: 436 QTc: 449 Interpretive Statements SINUS RHYTHM VENTRICULAR PREMATURE COMPLEX DELAYED PRECORDIAL R/S TRANSITION BASELINE ARTIFACT- III, AVL, AVF, V5-V6 BORDERLINE ECG Electronically Signed On 05-19-2021 20:56:29 INTERIOR DECORATOR by Tae Ricardo D.O.
--- NOTE | 2021-05-19 17:17 | ED.CHESTPAIN ---
HPI - Chest Pain General Chief Complaint: Chest Pain Stated Complaint: chest pains Time Seen by Provider: 05/19/21 17:17 Source: patient History of Present Illness HPI narrative: 30-year-old female, smoke with a history juvenile [place]'s [place] with dementia and [place] on risperidone, COVID on 04/28/2019, anxiety, depression, PTSD presents to the ER with -- anterior chest pain which started 1 hour ago. pain is continuous along with lightheadedness and shortness of breath. Has nausea without any vomiting. No sweating. -- Generalized tingling/ paraesthesia -- [place] involving trunk and limbs- patient had been on risperidone but she has been noncompliant with her medication. -- nausea without any vomiting. MD complaint: chest pain Onset (ago): hour(s) ( 1 hour ago) Onset: during rest Pain location: substernal Pain radiation: none Severity: moderate Quality: aching Relieving factors: nothing Exacerbating factors: nothing Context: recent illness ( Recent COVID on 04/28/2021.) and non compliance with medication Associated symptoms: nausea Risk Factors Coronary artery disease risk factors: none Thoracic aortic dissection risk factors: none Related Data On Oral Contraceptives: No Home Medications Medication Instructions Recorded Confirmed aripiprazole [Abilify] 5 mg PO BID 06/24/20 05/19/21 bupropion HCl 150 mg PO DAILY 06/24/20 05/19/21 buspirone 30 mg PO BID 06/24/20 05/19/21 clonidine HCl 0.1 mg PO HS 06/24/20 05/19/21 lorazepam 0.5 mg PO BID 06/24/20 05/19/21 prazosin 1 mg PO HS 06/24/20 05/19/21 sertraline 200 mg PO DAILY 06/24/20 05/19/21 trazodone 100 mg PO HS 06/24/20 05/01/21 risperidone 0.5 mg PO BID 08/03/20 05/19/21 mirabegron [Myrbetriq] 25 mg PO DAILY 05/01/21 05/19/21 tramadol 50 mg PO DAILY 05/01/21 05/19/21 Allergies Allergy/AdvReac Type Severity Reaction Status Date / Time No Known Allergies Allergy Verified 05/19/21 17:19 Review of Systems Review of Systems: All systems reviewed & are unremarkable except as noted in HPI and below Constitutional: Constitutional: Reports as per HPI and Reports no additional constitutional complaints Eyes: Eyes: Reports as per HPI and Reports no additional eye complaints ENT: Reports system reviewed and no additional complaints, except as documented Cardiovascular: Cardiovascular: Reports as per HPI and Reports chest pain Respiratory: Respiratory: Reports as per HPI and Reports no additional respiratory complaints Gastrointestinal: Gastrointestinal: Reports as per HPI and Reports nausea Genitourinary: Genitourinary: Reports no additional female genitourinary complaints Musculoskeletal: Musculoskeletal: Reports no additional musculoskeletal complaints Integumentary/Breasts: Skin/Breast: Reports system reviewed and no additional complaints, except as docu Neurologic: Reports system reviewed and no additional complaints, except as documented Comments: 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 Psychiatric: Psychiatric: Reports anxiety and Reports depression Endocrine: Endocrine: Reports no additional endocrine complaints Hematologic/Lymphatic: Hematologic/Lymphatic: Reports no additional hematologic/lymphatic complaints Allergic/Immunologic: Allergic/Immunologic: Reports no additional allergic/immunologic complaints [facility] Past Medical History Medical History (Updated 05/19/21 @ 19:06 by Sameer Jauregui MD) Hu's disease Surgical History Surgical History History of History of tonsillectomy History of tubal ligation Family History Family History Mother [place]'s disease Social History Social History Smoking status: Current some day smoker Alcohol intake: former Substance use: current Substanc
[2021-05-19 17:22] VITALS: BP 114/84; PULSE 89; RESP 16; TEMP 37.4; O2SAT 100
[2021-05-19 17:40] LABS: Basophils Absolute Auto 0.02 K/mm3 (0.00-0.10); Basophils Percent Auto 0.3 % (0.0-1.0); Eosinophils Percent Auto 1.7 % (1.0-6.0); Hematocrit 36.2 % (35.0-49.0); Hemoglobin 12.4 g/dL (12.0-15.0); Immature Granulocyte Absolute 0.01 K/mm3 (0.00-0.00); Immature Granulocyte Percent A 0.2 % (0.0-0.0); Lymphocytes Absolute Auto 1.54 K/mm3 (1.10-4.50); Lymphocytes Percent Auto 25.5 % (18.0-42.0); Mean Corpuscular HGB Conc 34.3 g/dL (32.0-36.0); Mean Corpuscular Hemoglobin 30.7 pg (27.0-31.0); Mean Corpuscular Volume 89.6 fL (78.0-102.0); Mean Platelet Volume 11.3 fl (9.2-11.8); Monocytes Absolute Auto 0.35 K/mm3 (0.10-0.90); Monocytes Percent Auto 5.8 % (2.0-11.0); Neutrophils Percent Auto 66.5 % (50.0-70.0); Platelet Count Result 175 K/mm3 (150-420); Red Blood Count 4.04 M/mm3 (4.20-5.40); Red Cell Distribution Width 12.5 % (11.6-14.4)
[2021-05-19 17:54] LABS: D Dimer 0.19 mg/L (0.19-0.50); Prothrombin Time 10.5 Seconds (9.50-12.10)
[2021-05-19 17:58] LABS: Alanine Aminotransferase 19 U/L (14-59); Albumin Level 3.9 g/dL (3.4-5.0); Alkaline Phosphatase 53 U/L (46-116); Anion Gap 10 mmol/L (8-16); Aspartate Amino Transferase 12 U/L (15-37); Bilirubin,Total 0.3 mg/dL (0.00-1.00); Blood Urea Nitrogen 11 mg/dL (7-18); Calcium 8.4 mg/dL (8.5-10.1); Carbon Dioxide 26 mmol/L (21-32); Chloride 102 mmol/L (98-108); Estimated CRCL calculation 93 ml/min; Estimated Glomerular Filt Rate > 60; Glucose 90 mg/dL (70-99); Osmolality Calculated 285 mOsm/kg (285-295); Potassium 3.5 mmol/L (3.5-5.1); Sodium 138 mmol/L (136-145); Total Protein 6.8 g/dL (6.4-8.2)
--- NOTE | 2021-05-19 18:02 | PC.NURSE ---
RN and Bibi RN looked for IM Zyprexa we do not have any in house. ERP made aware. Order now for PO 0.5mg Resperidone.
[2021-05-19 18:15] LABS: Troponin I 5.7 ng/L (0.00-60.4)
[2021-05-19] MEDS: risperiDONE 0.25 MG TABLET 0.5 MG PO (18:20)
[2021-05-19 18:34] VITALS: BP 100/79; PULSE 63; RESP 16; O2SAT 99
== END 2021-05-19 18:43 | disposition left against medical advice (07) ==
LOC: CHSED 17:09
PROVIDERS: Emergency Provider Internal Medicine Critical Care Medicine; PCP Emergency Medicine
DX: G10 Huntington's disease (principal); R07.1 Chest pain on breathing; F17.200 Nicotine dependence, unspecified, uncomplicated
CPT/HCPCS: 36415; 80053; 84484; 85025; 85380; 85610; 93005; 99282; 99284; A9270

== ENCOUNTER 2021-05-21 17:22 | Emergency (ER) | payer MEDICARE, MEDICAID, SELFPAY ==
[2021-05-21 19:39] VITALS: BP 144/98; PULSE 93; RESP 20; TEMP 36.8; O2SAT 98
--- NOTE | 2021-05-21 21:01 | PC.NURSE ---
Went to ER [facility] to bring pt back to Room, pt no longer in [facility], per staff pt seen leaving at approx 1950.
== END 2021-05-21 19:50 | disposition left against medical advice (07) ==
LOC: CHSED 17:27
PROVIDERS: Emergency Provider Emergency Medicine
DX: Z04.9 Encounter for examination and observation for unspecified reason (principal)
CPT/HCPCS: 99199

== ENCOUNTER 2021-05-23 13:20 | Emergency (ER) | payer MEDICARE, MEDICAID, SELFPAY ==
--- NOTE | ~2021-05-23 | CT_ITS ---
EXAMINATION: CT abdomen pelvis w con DATE: 05/23/2021 14:44 INDICATION: Left lower quadrant abdominal pain. TECHNIQUE: Computed tomography (CT) of the abdomen and pelvis was performed with 100 mL Omnipaque 350 intravenous contrast. Automated exposure control and iterative reconstruction technique were employe d. The dose-length product was 341.49 mGy-cm. COMPARISON: CT abdomen and pelvis 09/30/2020 FINDINGS: The visualized portions of the lung bases demonstrate minimal atelectasis. No pleural effus ion. The heart size is normal. No pericardial effusion. The liver, gallbladder, spleen, pancreas, adr enal glands, and kidneys are normal. There are no dilated loops of bowel. There are changes of append ectomy. There is physiologic fluid in the pelvis. There are enlarged periuterine and ovarian veins, c onsistent with pelvic venous insufficiency. There are no pathologically enlarged lymph nodes. There i s no free intraperitoneal fluid. There is mild lumbar spondylosis. IMPRESSION: 1. Pelvic venous insufficiency. Reviewed, dictated and finalized at location A. HAT B[employer] MAKER
[2021-05-23 13:40] VITALS: BP 137/96; PULSE 76; RESP 20; TEMP 36.6; O2SAT 77
[2021-05-23 14:08] LABS: Add Urine Microscopic? NO; Appearance Urine Clear (Clear); Bilirubin Urine Negative (Negative); Blood Urine Negative (Negative); Color Urine Light Yellow (Yellow); Glucose Urine UA Negative (Negative); Ketones Urine Negative (Negative); Leukocyte Esterase Ur Negative (Negative); Nitrate Urine Negative (Negative); Protein Urine Negative (Negative); Specific Grav Ur 1.015 (1.010-1.020); Urobilinogen Urine 0.2 mg/dL (0.2-1.0)
[2021-05-23 14:08] LABS: Basophils Absolute Auto 0.02 K/mm3 (0.00-0.10); Basophils Percent Auto 0.3 % (0.0-1.0); Eosinophils Absolute Auto 0.06 K/mm3 (0.02-0.50); Hematocrit 38.4 % (35.0-49.0); Hemoglobin 12.9 g/dL (12.0-15.0); Immature Granulocyte Absolute 0.01 K/mm3 (0.00-0.00); Immature Granulocyte Percent A 0.2 % (0.0-0.0); Lymphocytes Absolute Auto 1.17 K/mm3 (1.10-4.50); Lymphocytes Percent Auto 20.3 % (18.0-42.0); Mean Corpuscular HGB Conc 33.6 g/dL (32.0-36.0); Mean Corpuscular Volume 89.3 fL (78.0-102.0); Monocytes Absolute Auto 0.35 K/mm3 (0.10-0.90); Monocytes Percent Auto 6.1 % (2.0-11.0); Neutrophils Absolute Auto 4.1 K/mm3 (1.7-7.2); Neutrophils Percent Auto 72.1 % (50.0-70.0); Platelet Count Result 172 K/mm3 (150-420); White Blood Count 5.8 K/mm3 (4.8-10.8)
[2021-05-23] MEDS: KETOROLAC (*BKC) 60 MG/2 ML VIAL IM (14:18)
[2021-05-23] MEDS: ONDANSETRON INJ 4 MG/2 ML VIAL IV PUSH (14:18)
[2021-05-23 14:25] LABS: Alanine Aminotransferase 20 U/L (14-59); Albumin Level 4.1 g/dL (3.4-5.0); Alkaline Phosphatase 48 U/L (46-116); Anion Gap 11 mmol/L (8-16); Aspartate Amino Transferase 12 U/L (15-37); Bilirubin,Total 0.5 mg/dL (0.00-1.00); Blood Urea Nitrogen 16 mg/dL (7-18); Calcium 8.8 mg/dL (8.5-10.1); Carbon Dioxide 25 mmol/L (21-32); Chloride 101 mmol/L (98-108); Estimated CRCL calculation 104 ml/min; Estimated Glomerular Filt Rate > 60; Glucose 88 mg/dL (70-99); Lipase 89 U/L (73-393); Osmolality Calculated 284 mOsm/kg (285-295); Potassium 3.4 mmol/L (3.5-5.1); Sodium 137 mmol/L (136-145); Total Protein 7.2 g/dL (6.4-8.2)
[2021-05-23 14:26] LABS: SPREG INTERNAL CONTROL Positive; Serum Qual hCG Negative
[2021-05-23 14:30] LABS: Lactic Acid Reflex 0.3 mmol/L (0.4-2.0)
--- NOTE | 2021-05-23 15:23 | ED.ABDPAIN ---
HPI - Abdominal Pain General Chief Complaint: Abdominal Pain Stated Complaint: POSSIBLE ETOPIC PREG Time Seen by Provider: 05/23/21 13:22 Source: patient and RN notes reviewed Mode of arrival: wheelchair Limitations: no limitations History of Present Illness MD elicited complaint: abdominal pain Pertinent past history: other (recurrent abdominal pain, known [place]'s disease.) Onset (ago): day(s) (1) Pain Consistency: constant Location: LLQ Severity: moderate Pain scale (0-10): 7 Quality: cramping, aching and dull Radiation: none Migration to: no migration Exacerbating factors: nothing Relieving factors: nothing Associated symptoms: nausea Related Data Patient : No Home Medications Medication Instructions Recorded Confirmed aripiprazole [Abilify] 5 mg PO BID 06/24/20 05/19/21 bupropion HCl 150 mg PO DAILY 06/24/20 05/19/21 buspirone 30 mg PO BID 06/24/20 05/19/21 clonidine HCl 0.1 mg PO HS 06/24/20 05/19/21 lorazepam 0.5 mg PO BID 06/24/20 05/19/21 prazosin 1 mg PO HS 06/24/20 05/19/21 sertraline 200 mg PO DAILY 06/24/20 05/19/21 trazodone 100 mg PO HS 06/24/20 05/01/21 risperidone 0.5 mg PO BID 08/03/20 05/19/21 mirabegron [Myrbetriq] 25 mg PO DAILY 05/01/21 05/19/21 tramadol 50 mg PO DAILY 05/01/21 05/19/21 Allergies Allergy/AdvReac Type Severity Reaction Status Date / Time No Known Allergies Allergy Verified 05/19/21 17:19 Review of Systems Review of Systems: All systems reviewed & are unremarkable except as noted in HPI and below PMFSH Past Medical History Medical History Abdominal pain [place]'s disease Surgical History Surgical History History of History of tonsillectomy History of tubal ligation Family History Family History Mother Hu's disease Social History Social History Smoking status: Current some day smoker Alcohol intake: former Substance use: current Substance use type: marijuana Gender identity (if verbalized by the patient): Female Exam Const: General: no acute distress and alert Nutritional Appearance: well nourished Orientation/consciousness: patient oriented x3 Limitations: no limitations Other: pt mild choretic movements, chronic. HENMT: Head: normal to inspection Ears: external ears normal and TM's normal bilaterally General nose exam: Normal external nose present and Normal nares present Face and sinus: normal facial exam and sinuses nontender Mouth: Yes lip normal and Yes moist mucous membranes Teeth and gingiva: dentition normal Eyes: Conjunctivae: conjunctivae normal Pupils: Equal, round and reactive pupils present EOM: EOMs intact bilaterally Neck: Neck: normal visual inspection and no lymphadenopathy Chest: Chest palpation & inspection: normal inspection of the chest Resp: Effort & Inspection: normal respiratory effort Auscultation: clear to auscultation bilaterally Cardio: Rate: regular rate Rhythm: regular rhythm GI: GI Palp: Yes Soft to palpation and Yes Tenderness to palpation present (GI) (minimally tender LLQ abdomen) : General: Yes Bladder palpation abnormal (minimal suprapubic tenderness) and Yes no CVA tenderness Back/Spine/Pelvis: Back: no CVA tenderness Skin: General skin exam: normal color Neuro: General: patient oriented x3, moves all extremities, no meningeal signs, no focal motor deficits and CN's II-XI intact bilaterally Extrem: General: normal to inspection and no pedal edema Psych: Appearance: grossly normal Mental Status: mental status grossly normal Affect: normal affect Attitude: cooperative Thought content: Yes Normal thought content present Course Course Emergency Course: Pt was stable and pain-free in the ED. Reevaluation(s) Reevaluation #1: JAYLYNS. P
[2021-05-23 16:03] VITALS: BP 113/71; PULSE 72; RESP 16; O2SAT 100
== END 2021-05-23 16:05 | disposition home or self-care (01) ==
PROVIDERS: Emergency Provider Emergency Medicine; PCP Emergency Medicine
DX: R10.32 Left lower quadrant pain (principal)
CPT/HCPCS: 36415; 74177; 80053; 81003; 83605; 83690; 84703; 85025; 96372; 96374; 99284; J1885; J2405; Q9967